=== PATIENT | male | born 1965 | race Caucasian/White ===

== ENCOUNTER 2019-02-12 13:27 | Day surgery (SDC) | payer BC ==
[2019-02-11 09:11] VITALS: BMI 29.8
[~2019-02-12 13:27] MED LIST: LACTATED RINGERS 1,000 ML IV SCH; LIDOCAINE 1% 20 ML VIAL (10MG/ML) FOR IV START INTRADERMA PRN
[2019-02-12 13:50] VITALS: RESP 16; TEMP 98
[2019-02-12] MEDS ORDERED: PROPOFOL 10 MG/ML 20 ML VIAL IV ONE (14:25)
--- NOTE | 2019-02-12 14:50 | P.OP ---
Date of Procedure: 02/12/19 Preoperative Diagnosis: screening Postoperative Diagnosis: diverticulosis of colon Descending colon polyp Rectal polyp Procedure(s) Performed: colonoscopy with hot snare polypectomy Surgeon: Abdoulaye Horta Pathology: other (polyps of descending colon and rectum) Condition: stable Disposition: same day Indications for Procedure: 53-year-old male presents for screening colonoscopy. Risks, benefits and alternatives were provided to the patient. The patient did provide consent prior to attending the endoscopy suite. Operative Findings: diverticulosis of colon Descending colon polyp Rectal polyp Description of Procedure: the patient was brought to the endoscopy suite and placed in left lateral decubitus position. Adequate sedation was achieved using conscious sedation. Digital rectal exam was performed and mild internal hemorrhage were palpated. An endoscope was then placed in the rectum and advanced to the cecum as identified by landmarks including the appendiceal orifice and the ileocecal valve. The prep was good. The colonoscope was then slowly withdrawn, examining for any mucosal abnormality. The cecum, ascending, transverse, descending and sigmoid colon were visualized adequately. 2 polyps are noted in the colon. One was noted in the descending colon and hot snare polypectomy was used to remove this polyp. Another polyp was noted in the rectum. This was removed with hot snare polypectomy. Diverticulosis was noted scattered throughout the colon. Retroflexion was performed in the rectum and mild internal hemorrhoids were visible. Excess air was removed, the colonoscope withdrawn and the procedure terminated. The patient was then transferred to the recovery unit in stable condition. Repeat contrast should be performed in 5 years.
[2019-02-12 15:27] VITALS: BP 135/70; PULSE 80
== END 2019-02-12 15:27 | disposition home or self-care (01) ==
LOC: ORWHC2ENDO 13:27
PROVIDERS: ATTEND Surgery
DX: Z12.11 Encounter for screening for malignant neoplasm of colon (principal); D12.8 Benign neoplasm of rectum; K63.5 Polyp of colon; K57.30 Diverticulosis of large intestine without perforation or abscess without bleeding; K64.8 Other hemorrhoids; I10 Essential (primary) hypertension; G47.33 Obstructive sleep apnea (adult) (pediatric); K21.9 Gastro-esophageal reflux disease without esophagitis; Z79.899 Other long term (current) drug therapy
CPT/HCPCS: 88305; 45385; J2704

== ENCOUNTER 2020-07-28 15:41 | Inpatient (IN) | payer BC ==
[2020-07-28] MEDS ORDERED: SODIUM CHLORIDE 0.9% 1,000 ML IV STA (17:02)
[2020-07-28 17:16] LABS: Basophils # (A) 0.1 k/uL (0-0.2); Basophils % (A) 1 %; Eosinophils # (A) 0.2 k/uL (0-0.7); Eosinophils % (A) 2 %; HCT 46.2 % (39.0-53.0); HGB 15.6 gm/dL (13.0-17.5); Lymphocytes # (A) 1.4 k/uL (1.0-4.8); Lymphocytes % (A) 20 %; MCH 31.5 pg (25.0-35.0); MCHC 33.7 g/dL (31.0-37.0); MCV 93.5 fL (80.0-100.0); Mean Platelet Volume 7.7; Monocytes # (A) 0.6 k/uL (0-1.0); Monocytes % (A) 9 %; Neutrophils # (A) 4.4 k/uL (1.3-7.7); Neutrophils % (A) 65 %; Platelet Count 200 k/uL (150-450); RBC 4.94 m/uL (4.30-5.90); RDW 12.5 % (11.5-15.5); WBC 6.7 k/uL (3.8-10.6)
[2020-07-28 17:28] LABS: ALT 25 U/L (4-49); AST 31 U/L (17-59); African American GFR (CKD) >90 (>60 ml/min/1.73 sqM); Albumin 4.4 g/dL (3.5-5.0); Alkaline Phosphatase 82 U/L (38-126); Anion Gap 9 mmol/L; Blood Urea Nitrogen 17 mg/dL (9-20); Calcium 9.8 mg/dL (8.4-10.2); Carbon Dioxide 23 mmol/L (22-30); Chloride 104 mmol/L (98-107); Creatine Kinase 108 U/L (55-170); Glucose 87 mg/dL (74-99); Magnesium 1.8 mg/dL (1.6-2.3); Non-African American GFR(CKD) >90 (>60 ml/min/1.73 sqM); Potassium 3.8 mmol/L (3.5-5.1); Sodium 136 mmol/L (137-145); Total Bilirubin 0.6 mg/dL (0.2-1.3); Total Protein 7.6 g/dL (6.3-8.2)
[2020-07-28] MEDS ORDERED: HEPARIN SODIUM 1,000 UN/ML (10ML VL) IV PRN (17:30)
[2020-07-28] MEDS ORDERED: HEPARIN SODIUM 1,000 UN/ML (10ML VL) IV ONE (17:30)
--- NOTE | 2020-07-28 17:30 | XR ---
EXAMINATION TYPE: XR chest 2V DATE OF EXAM: 07/28/2020 COMPARISON: Chest x-ray 07/13/2010 HISTORY: Dysrhythmia TECHNIQUE: Frontal and lateral views of the chest are obtained. FINDINGS: There is no focal air space opacity, pleural effusion, or pneumothorax seen. The cardiac silhouette size is within normal limits. There are overlying leads. The osseous structures are intac t. IMPRESSION: No acute cardiopulmonary process.
[2020-07-28 17:31] LABS: D-Dimer 0.26 mg/L FEU (<0.60); Partial Thromboplastin Time 24.9 sec (22.0-30.0); Prothrombin Time 10.4 sec (9.0-12.0)
[2020-07-28] MEDS ORDERED: DILTIAZEM DRIP BOLUS FROM BAG 1 MG SOLN IV ONE (17:31)
--- NOTE | 2020-07-28 17:36 | ED ---
Arrhythmia/Palpitations HPI - General Chief Complaint: Arrhythmia/Palpitations Stated Complaint: Abnormal EKG Time Seen by Provider: 07/28/20 16:50 Source: patient, RN notes reviewed Mode of arrival: ambulatory Limitations: no limitations - History of Present Illness Initial Comments: This is a 55-year-old male with a history of hypertension states he's been feeling well including losing 17 pounds this past spring when he was found incidentally to have A. fib RVR while at work at [employer]. Patient states he has beengetting short of breath for the past 2 weeks she is no palpitations no chest pain fevers chills nausea vomiting sweats or other symptoms. No recent weight gain no acute or cold intolerance. There is a cardiac disease family history with his father Father. He denies any other complaints this time he was sent over from the his doctor's office for evaluation MD Complaint: atrial fibrillation - Related Data Home Medications Medication Instructions Recorded Confirmed Omeprazole [PriLOSEC] 20 mg PO DAILY PRN 06/10/14 07/28/20 Losartan [Cozaar] 50 mg PO DAILY 02/11/19 07/28/20 Tamsulosin [Flomax] 0.4 mg PO DAILY 02/11/19 07/28/20 hydroCHLOROthiazide [Hydrodiuril] 12.5 mg PO DAILY 02/11/19 07/28/20 Allergies Allergy/AdvReac Type Severity Reaction Status Date / Time No Known Allergies Allergy Verified 07/28/20 17:24 Review of Systems ROS Statement: Those systems with pertinent positive or pertinent negative responses have been documented in the HPI. ROS Other: All systems not noted in ROS Statement are negative. Past Medical History Past Medical History: GERD/Reflux, Hypertension Additional Past Medical History / Comment(s): HX OF HERNIATED DISC, LEFT ELBOW RED AND SWOLLEN. ? SLEEP APNEA PT STATES PER ANESTHESIOLOGIST. History of Any Multi-Drug Resistant Organisms: None Reported Past Surgical History: Appendectomy, Orthopedic Surgery Additional Past Surgical History / Comment(s): RIGHT KNEE ARTHROSCOPY, SINUS SURGERY, RT ROTATOR CUFF (03/31/2014), LT ELBOW SX Past Anesthesia/Blood Transfusion Reactions: No Reported Reaction Past Psychological History: No Psychological Hx Reported Smoking Status: Never smoker Past Alcohol Use History: Occasional Past Drug Use History: None Reported - Past Family History Mother Family Medical History: No Reported History General Exam - General Exam Comments Initial Comments: This is a well-developed well-nourished awake alert oriented 3 male Limitations: no limitations General appearance: alert, in no apparent distress Head exam: Present: atraumatic, normocephalic, normal inspection Eye exam: Present: normal appearance, PERRL, EOMI. Absent: scleral icterus, conjunctival injection, periorbital swelling ENT exam: Present: normal exam, mucous membranes moist Neck exam: Present: normal inspection, full ROM, other (No stridor JVD or bruits). Absent: tenderness, meningismus, lymphadenopathy, thyromegaly Respiratory exam: Present: normal lung sounds bilaterally. Absent: respiratory distress, wheezes, rales, rhonchi, stridor Cardiovascular Exam: Present: tachycardia, irregular rhythm. Absent: systolic murmur, diastolic murmur, rubs, gallop, clicks GI/Abdominal exam: Present: soft, normal bowel sounds. Absent: distended, tenderness, guarding, rebound, rigid Extremities exam: Present: normal inspection, full ROM, normal capillary refill. Absent: tenderness, pedal edema, joint swelling, calf tenderness Back exam: Present: normal inspection Neurological exam: Present: alert, oriented X3, CN II-XII intact Psychiatric exam: Present: normal affect, normal mood Skin exam: Present: warm, dry, intact, normal color. Absent: rash Course Vital Signs 07/28/20 07/28/20 07/28/20 16:05 16:18 18:25 Temperature 97.9 F Pulse Rate 70 138 H 91 Respiratory 18 20 16 Rate Blood Pressure 159/89 140/122 144/90 O2 Sat by Pulse 98 98 97 Oximetry - Reevaluation(s) Reevaluation #1: 07/28/20 19:20 Reevaluation patient had no other symptoms at this time his heart rate is responding to the IV Cardizem. EKG Findings - EKG Results: EKG: interpreted by GIBSON (Atrial fibrillation rate 123 QRS 90 QT since QTC 336/41 rapid ventricular response noted nonspecific ST-T wave configuration) Medical Decision Making - Medical Decision Making I did discuss the findings with the patient as well as with Dr. Escobedo, patient will be admitted with cardiology consultation his heart rate is responding Blake atrial fibrillation though his response rate is plus or minus en route at this time. - Lab Data Result diagrams: 07/28/20 16:18 07/28/20 16:18 Lab Results 07/28/20 07/28/20 07/28/20 Range/Units 16:18 16:18 16:18 WBC 6.7 (3.8-10.6) k/uL RBC 4.94 (4.30-5.90) m/uL Hgb 15.6 (13.0-17.5) gm/dL Hct 46.2 (39.0-53.0) % MCV 93.5 (80.0-100.0) fL MCH 31.5 (25.0-35.0) pg MCHC 33.7 (31.0-37.0) g/dL RDW 12.5 (11.5-15.5) % Plt Count 200 (150-450) k/uL MPV 7.7 Neutrophils % 65 % Lymphocytes % 20 % Monocytes % 9 % Eosinophils % 2 % Basophils % 1 % Neutrophils # 4.4 (1.3-7.7) k/uL Lymphocytes # 1.4 (1.0-4.8) k/uL Monocytes # 0.6 (0-1.0) k/uL Eosinophils # 0.2 (0-0.7) k/uL Basophils # 0.1 (0-0.2) k/uL PT 10.4 (9.0-12.0) sec INR 1.0 (<1.2) APTT 24.9 (22.0-30.0) sec D-Dimer 0.26 (<0.60) mg/L FEU Sodium 136 L (137-145) mmol/L Potassium 3.8 (3.5-5.1) mmol/L Chloride 104 (98-107) mmol/L Carbon Dioxide 23 (22-30) mmol/L Anion Gap 9 mmol/L BUN 17 (9-20) mg/dL Creatinine 0.88 (0.66-1.25) mg/dL Est GFR (CKD-EPI)AfAm >90 (>60 ml/min/1.73 sqM) Est GFR (CKD-EPI)NonAf >90 (>60 ml/min/1.73 sqM) Glucose 87 (74-99) mg/dL Calcium 9.8 (8.4-10.2) mg/dL Magnesium 1.8 (1.6-2.3) mg/dL Total Bilirubin 0.6 (0.2-1.3) mg/dL AST 31 (17-59) U/L ALT 25 (4-49) U/L Alkaline Phosphatase 82 (38-126) U/L Creatine Kinase 108 (55-170) U/L Troponin I (0.000-0.034) ng/mL Total Protein 7.6 (6.3-8.2) g/dL Albumin 4.4 (3.5-5.0) g/dL TSH 3.400 (0.465-4.680) mIU/L 07/28/20 Range/Units 16:18 WBC (3.8-10.6) k/uL RBC (4.30-5.90) m/uL Hgb (13.0-17.5) gm/dL Hct (39.0-53.0) % MCV (80.0-100.0) fL MCH (25.0-35.0) pg MCHC (31.0-37.0) g/dL RDW (11.5-15.5) % Plt Count (150-450) k/uL MPV Neutrophils % % Lymphocytes % % Monocytes % % Eosinophils % % Basophils % % Neutrophils # (1.3-7.7) k/uL Lymphocytes # (1.0-4.8) k/uL Monocytes # (0-1.0) k/uL Eosinophils # (0-0.7) k/uL Basophils # (0-0.2) k/uL PT (9.0-12.0) sec INR (<1.2) APTT (22.0-30.0) sec D-Dimer (<0.60) mg/L FEU Sodium (137-145) mmol/L Potassium (3.5-5.1) mmol/L Chloride (98-107) mmol/L Carbon Dioxide (22-30) mmol/L Anion Gap mmol/L BUN (9-20) mg/dL Creatinine (0.66-1.25) mg/dL Est GFR (CKD-EPI)AfAm (>60 ml/min/1.73 sqM) Est GFR (CKD-EPI)NonAf (>60 ml/min/1.73 sqM) Glucose (74-99) mg/dL Calcium (8.4-10.2) mg/dL Magnesium (1.6-2.3) mg/dL Total Bilirubin (0.2-1.3) mg/dL AST (17-59) U/L ALT (4-49) U/L Alkaline Phosphatase (38-126) U/L Creatine Kinase (55-170) U/L Troponin I <0.012 (0.000-0.034) ng/mL Total Protein (6.3-8.2) g/dL Albumin (3.5-5.0) g/dL TSH (0.465-4.680) mIU/L - Radiology Data Radiology results: report reviewed (Imaging reviewed no acute findings.), image reviewed Critical Care Time Critical Care Time: Yes Total Critical Care Time: 35 Critical Care Time: Critical care time includes initial presentation with history physical labs x- rays also reevaluation patient responsive therapy discuss with the patient regarding findings discussion with the admitting physician admission orders and documentation of the above Disposition Clinical Impression: Rapid atrial fibrillation, Hypertension Disposition: ADMITTED IP TO THIS [facility] Condition: Fair Referrals: Manjeet Bray MD [Primary Care Provider] - 1-2 days
[2020-07-28] MEDS: HEPARIN SOD,PORK IN 0.45% NACL 25,000 UNIT in 0.45% NACL 1 250ML.BAG IV SCH ×2 (17:44→19:24)
[2020-07-28] MEDS ORDERED: DILTIAZEM 125 MG in SODIUM CHLORIDE 0.9% 100 ML IV SCH (18:00)
[2020-07-28] MEDS ORDERED: NALOXONE 0.4 MG/ML 1 ML VIAL IV PRN (19:24)
[2020-07-28] MEDS ORDERED: ACETAMINOPHEN TAB 325 MG TAB PO PRN (19:24)
[2020-07-28] MEDS ORDERED: PANTOPRAZOLE 40 MG TABLET PO PRN (19:27)
[2020-07-28] MEDS ORDERED: SODIUM CHLORIDE 0.9% 1,000 ML IV SCH (19:30)
[2020-07-28] MEDS ORDERED: ALPRAZolam 0.5 MG TAB PO PRN (22:36)
[2020-07-28 23:58] VITALS: RESP 18
--- NOTE | 2020-07-29 00:16 | P.HPIM ---
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 He claims that he is in good health otherwise he gets his annual checkups and everything has been under control and doing well. He takes blood pressure medications . He's been trying to on his health and lose some weight with increased exercising he denies taking any supplements or any herbs. He's been successful to lose 17 pounds intentionally. He's been feeling fine except for the past 2 weeks where he noticed some unusual easy fatigability with routines that she's used to do in the past like mowing grass and some mild/moderate activity he didn't think much of it he thought it's due to the heat and change in weather. Otherwise he denies any chest pain denies any fevers or chills denies any dizziness lightheadedness nausea vomiting abdominal pain or any bleeding In the ED was found to be in A. fib with RVR patient was started on Cardizem drip and admitted for further care and evaluation Patient denies any recent travel or sick contacts. He has positive family history of heart disease his grandpa of massive heart attack at age of 60 and his father has history of brain aneurysm Review of Systems Pertinent positives as noted in HPI. All other systems were reviewed and are negative Past Medical History Past Medical History: GERD/Reflux, Hypertension Additional Past Medical History / Comment(s): HX OF HERNIATED DISC, LEFT ELBOW RED AND SWOLLEN. ? SLEEP APNEA PT STATES PER ANESTHESIOLOGIST. History of Any Multi-Drug Resistant Organisms: None Reported Past Surgical History: Appendectomy, Orthopedic Surgery Additional Past Surgical History / Comment(s): RIGHT KNEE ARTHROSCOPY, SINUS SURGERY, RT ROTATOR CUFF (03/31/2014), LT ELBOW SX Past Anesthesia/Blood Transfusion Reactions: No Reported Reaction Past Psychological History: No Psychological Hx Reported Smoking Status: Never smoker Past Alcohol Use History: Occasional Past Drug Use History: None Reported - Past Family History Mother Family Medical History: No Reported History Additional Family Medical History / Comment(s): Father with history of brain aneurysm, grandpa with massive heart attack at age of 60 Medications and Allergies Home Medications Medication Instructions Recorded Confirmed Type Omeprazole [PriLOSEC] 20 mg PO DAILY PRN 06/10/14 07/28/20 History Losartan [Cozaar] 50 mg PO DAILY 02/11/19 07/28/20 History Tamsulosin [Flomax] 0.4 mg PO DAILY 02/11/19 07/28/20 History hydroCHLOROthiazide [Hydrodiuril] 12.5 mg PO DAILY 02/11/19 07/28/20 History Allergies Allergy/AdvReac Type Severity Reaction Status Date / Time No Known Allergies Allergy Verified 07/28/20 17:24 Physical Exam Vitals: Vital Signs Temp Pulse Resp BP Pulse Ox 07/28/20 18:25 91 16 144/90 97 07/28/20 16:18 138 H 20 140/122 98 07/28/20 16:05 97.9 F 70 18 159/89 98 Intake and Output 07/28/20 07/28/20 07/28/20 06:59 14:59 22:59 Intake Total 16.667 Balance 16.667 Intake: Intake, IV Titration 16.667 Amount Heparin Sod,Pork in 0.45% 16.667 NaCl 25,000 unit In 0.45 % NaCl 1 250ml.bag @ 9. 886 UNITS/KG/HR 10 mls/hr IV .Q24H [facility] Rx#: [id number] Other: Weight 101.151 kg Constitutional: No acute distress, conversant, pleasant Eyes: Anicteric sclerae, moist conjunctiva, Pupils equal round reactive to light ENMT: NC/AT Oropharynx clear, no erythema, or exudates Neck: Supple, FROM, no masses, or JVD No carotid bruits No thyromegaly Lungs: Clear to auscultation Clear to percussion Normal respiratory effort, no accessory muscle use Cardiovascular: Heart irregular No murmurs, gallops, or rubs No peripheral edema Abdominal: Soft Nontender, no guarding, rebound or rigidity Abdomen moving with respiration Normoactive bowel sounds No hepatomegaly, No splenomegaly No palpable mass No abdominal wall hernia noted Skin: Normal temperature, tone, texture, turgor No induration No subcutaneous nodules No rash, lesions No ulcers Extremities: No digital cyanosis No clubbing Pedal pulses intact and symmetrical Radial pulses intact and symmetrical No calf tenderness Psychiatric: Alert and oriented to person, place and time Appropriate affect fair judgement Neuro Muscles Strength 5/5 in all 4 extremities Sensation to light touch grossly present throughout Cranial nerves II-XII grossly intact No focal sensory deficits Lymphatics: no palpable cervical or supraclavicular , or inguinal lymph nodes Results CBC & Chem 7: 07/28/20 16:18 07/28/20 16:18 Labs: Abnormal Lab Results - Last 24 Hours (Table) 07/28/20 Range/Units 16:18 Sodium 136 L (137-145) mmol/L Assessment and Plan Assessment: A. fib with RVR Heparin drip Cardizem drip Cardiology evaluation Echocardiogram TSH unremarkable Monitor vital signs Monitor electrolytes Chest x-ray no pleural effusion no acute pathology Hypertension, overall controlled currently slightly elevated Resume home medications, losartan CODE STATUS: Full code DVT prophylaxis: On heparin drip Discussed with: Patient, ER, RN Anticipated length of stay more than [address]: Home A total of 65 minutes was spent on the care of this complex patient more than 50% of the time was spent in counseling and care coordination.
[2020-07-29] MEDS ORDERED: DILTIAZEM ORAL 60 MG TAB PO SCH (09:00)
[2020-07-29] MEDS ORDERED: TAMSULOSIN 0.4 MG CAP.ER.24H PO SCH (09:00)
[2020-07-29] MEDS ORDERED: LOSARTAN 50 MG TAB PO SCH (09:00)
[2020-07-29] MEDS ORDERED: hydroCHLOROthiazide 12.5 MG CAP PO SCH (09:00)
[2020-07-29] MEDS ORDERED: APIXABAN 5 MG TAB PO SCH (09:00)
[2020-07-29 09:18] LABS: Prothrombin Time 10.5 sec (9.0-12.0)
[2020-07-29 09:28] LABS: Basophils # (A) 0.1 k/uL (0-0.2); Basophils % (A) 1 %; Eosinophils # (A) 0.1 k/uL (0-0.7); Eosinophils % (A) 2 %; HCT 46.5 % (39.0-53.0); HGB 15.9 gm/dL (13.0-17.5); Lymphocytes # (A) 1.1 k/uL (1.0-4.8); Lymphocytes % (A) 24 %; MCH 32.4 pg (25.0-35.0); MCHC 34.2 g/dL (31.0-37.0); MCV 94.8 fL (80.0-100.0); Mean Platelet Volume 8.6; Monocytes # (A) 0.5 k/uL (0-1.0); Monocytes % (A) 12 %; Neutrophils # (A) 2.6 k/uL (1.3-7.7); Neutrophils % (A) 58 %; Platelet Count 189 k/uL (150-450); RBC 4.91 m/uL (4.30-5.90); RDW 12.5 % (11.5-15.5); WBC 4.5 k/uL (3.8-10.6)
--- NOTE | 2020-07-29 09:37 | CONS ---
CONSULTATION Mr. Bryant is a 55-year-old male with a known history of hypertension and no other cardiac disease who works in the operating room at [employer] and yesterday while working he checked his smart watch and noted his heart rate to be fast. He had a rhythm strip that documented atrial fibrillation. He finished his day and subsequently after consultation with primary care physician, he was referred to the emergency room and admitted with atrial fibrillation. The patient does not feel the palpitations. He is unaware of the atrial fibrillation. He has not been checking his heart rate on a regular basis yet he felt tired over the last 2 weeks. He is average in his exercise tolerance, has no exertional chest discomfort. No significant changes in his breathing. No dizziness. No palpitation. No syncope. No PND, orthopnea, or peripheral edema. His coronary risk factors are positive for hypertension. Negative for diabetes or smoking. His lipid profile is not available. FAMILY HISTORY: He has a family history of premature coronary artery disease in his grandfather. His father has a history of atrial fibrillation. SOCIAL HISTORY: He drinks alcohol about twice a week and drinks a significant amount of caffeine. MEDICATION: His medications at home included HydroDIURIL 12.5 mg daily, Flomax 0.4 mg daily and losartan 50 mg daily. REVIEW OF SYSTEMS: RESPIRATORY SYSTEM: He denies any recent wheezing or cough. No history of documented obstructive lung disease. GI SYSTEM: No recent GI bleeding. No peptic ulcer disease. SYSTEM: No dysuria or hematuria. NERVOUS SYSTEM: No history of stroke or seizure. PHYSICAL EXAMINATION: He is a 55-year-old male, alert, oriented, in no apparent distress. Blood pressure 117/80 with a heart rate in 90s. HEAD: Normocephalic, Eyes sclerae anicteric. NECK: Good carotid upstroke. No bruit. No jugular venous distention. LUNGS: Clear to auscultation. HEART: Irregularly irregular S1, S2. No S3. No rub. ABDOMEN: Soft and nontender. Positive bowel sounds. No organomegaly. EXTREMITIES: No edema. Intact pulses. LAB DATA: Lab data revealed troponin less than 0.012. BUN and creatinine of 17 and 0.88, potassium 3.8, hemoglobin 15.6. TSH of 3.4. EKG revealed atrial fibrillation with rapid ventricular response, rate of [address]-T wave changes. Chest x-ray shows no acute infiltrate. IMPRESSION: 1. Atrial fibrillation of unknown duration, could be 2 weeks. His CHADS2 VASc score is 1 in view of his hypertension. 2. History of hypertension. RECOMMENDATION: From the cardiac standpoint I will stop his IV heparin and his IV Cardizem. I will initiate treatment with oral Cardizem and Eliquis. We will obtain echocardiogram with Doppler. If his rate is controlled with ambulation, he may be able to be discharged home and followed as an outpatient on anticoagulation and if he remains in atrial fibrillation that I would recommend to proceed with KOLTON guided cardioversion. I have discussed those findings and recommendations with the patient. He has full understanding and agreement. At the same time, I have encouraged him to cut down his caffeine intake as well as his alcohol intake. Thank you for this consult. We will follow with you. MEG / LORENZA: [id number] /
[2020-07-29 09:45] VITALS: TEMP 97.7
--- NOTE | 2020-07-29 11:36 | ECHOF ---
Referral Reason:Atrial fibrillation MEASUREMENTS -------- HEIGHT: 180.3 cm WEIGHT: 101.2 kg BP: 117/85 RVIDd: 3.2 cm (< 3.3) IVSd: 1.1 cm (0.6 - 1.1) LVIDd: 4.5 cm (3.9 - 5.3) LVPWd: 1.0 cm (0.6 - 1.1) IVSs: 1.8 cm LVIDs: 3.3 cm LVPWs: 1.7 cm LAESV Index (A-L): 36.25 ml/m Ao Diam: 3.5 cm (2.0 - 3.7) AV Cusp: 1.9 cm (1.5 - 2.6) LA Diam: 3.9 cm (2.7 - 3.8) MV EXCURSION: 18.048 mm (> 18.000) MV EF SLOPE: 121 mm/s (70 - 150) EPSS: 1.5 cm AR PHT: 413 ms RAP: 5.00 mmHg RVSP: 18.36 mmHg FINDINGS -------- Atrial fibrillation. This was a technically good study. The left ventricular size is normal. Left ventricular wall thickness is normal. Overall left vent ricular systolic function is low-normal with, an EF between 50 - 55 %. Left ventricular fillimg pre ssure cannot be estimated due to Atrial fibrillation. The right ventricle is normal in size. LA is moderately dilated 34-39 ml/m2 The right atrial size is normal. The aortic valve is trileaflet and appears structurally normal. Trace amount of aortic regurgitatio n. The mitral valve is normal. [id number] mitral regurgitation is present. The tricuspid valve appears structurally normal. Mild tricuspid regurgitation present. Right vent ricular systolic pressure is normal at < 35 mmHg. There is no pulmonic regurgitation present. The aortic root size is normal. Normal inferior vena cava with normal inspiratory collapse consistent with estimated right atrial pre ssure of 5 mmHg. There is no pericardial effusion. CONCLUSIONS -------- 1. The left ventricular size is normal. 2. Left ventricular wall thickness is normal. Inferior wall is hypokinetic 3. Overall left ventricular systolic function is low-normal with, an EF between 50 - 55 %. 4. Left ventricular fillimg pressure cannot be estimated due to Atrial fibrillation. 5. LA is moderately dilated 34-39 ml/m2 6. Trace amount of aortic regurgitation. 7. [id number] mitral regurgitation is present. 8. Mild tricuspid regurgitation present. 9. There is no pericardial effusion. SLEEVE SEWER: Regina Ibarra RDCS
--- NOTE | 2020-07-29 14:16 | P.DS ---
Providers Date of admission: 07/28/20 19:25 Expected date of discharge: 07/29/20 Attending physician: Tiana Meek DO Consults: 07/28/20 19:25 Consult Physician Routine Consulting Provider: Gucci Haro Consult Reason/Comments: Rapid atrial fibrillation, exertional dyspnea Do you want consulting provider notified?: Yes Primary care physician: [facility] Course: Discharge Diagnosis: Newly discovered atrial fibrillation with rapid ventricular response Hypertension GERD Hospital Course: Patient is a 55-year-old female with a history of GERD, hypertension, and possible sleep apnea who presented to the emergency department secondary to elevated heart rate of 160-170. He reports that he has been having easy fatigability and at work ejected follow found it was elevated. In the ER he was diagnosed with atrial fibrillation with rapid ventricular response. He was started on a heparin drip and Cardizem drip. He was admitted for further monitoring. He continued to be in A. fib but was rate controlled and as transitioned off the Cardizem drip and onto oral Cardizem. Echocardiogram showed an ejection fraction of 55-60% with moderate to severe mitral regurgitation. He was seen by cardiology. He was determined stable for discharge home. We'll follow up with cardiology in 2 weeks for possible cardioversion should he did not convert on his own. He will be discharged on Eliquis and diltiazem Patient seen and examined at bedside. Feeling much better, until that his heart rate is slower but he never realized it was fast, denies any shortness breath. Feeling well in agreement to go home. Vital signs reviewed and stable. General: non toxic, no distress, appears at stated age Derm: warm, dry Head: atraumatic, normocephalic, symmetric Eyes: EOMI, no lid lag, anicteric sclera Mouth: no lip lesion, mucus membranes moist Cardiovascular: S1-S2 regular, no murmur, positive posterior tibial pulse bilateral, Lungs: CTA bilateral, no rhonchi, no rales , no accessory muscle use Abdominal: soft, nontender to palpation, no guarding, no appreciable organomegaly Ext: no gross muscle atrophy, no edema, no contractures Neuro: CN II-XI grossly intact, no focal neuro deficits Psych: Alert, oriented, appropriate affect A total of 35 minutes of time were spent preparing this complex discharge summary . Patient Condition at Discharge: Fair Plan - Discharge Summary New Discharge Prescriptions: New Diltiazem Oral [Cardizem*] 60 mg PO TID #90 tab Apixaban [Eliquis] 5 mg PO BID #60 tab Continue Omeprazole [PriLOSEC] 20 mg PO DAILY PRN PRN Reason: Heartburn Tamsulosin [Flomax] 0.4 mg PO DAILY Losartan [Cozaar] 50 mg PO DAILY hydroCHLOROthiazide [Hydrodiuril] 12.5 mg PO DAILY Discharge Medication List Omeprazole [PriLOSEC] 20 mg PO DAILY PRN 06/10/14 [History] Losartan [Cozaar] 50 mg PO DAILY 02/11/19 [History] Tamsulosin [Flomax] 0.4 mg PO DAILY 02/11/19 [History] hydroCHLOROthiazide [Hydrodiuril] 12.5 mg PO DAILY 02/11/19 [History] Apixaban [Eliquis] 5 mg PO BID #60 tab 07/29/20 [Rx] Diltiazem Oral [Cardizem*] 60 mg PO TID #90 tab 07/29/20 [Rx] Follow up Appointment(s)/Referral(s): Manjeet Bray MD [Primary Care Provider] - 1-2 days Oscar Hart MD [STAFF PHYSICIAN] - 1 Week Activity/Diet/Wound Care/Special Instructions: Activity: as tolerated Diet: heart healthy Special Instructions: monitor Discharge Disposition: HOME SELF-CARE
[2020-07-29 14:56] VITALS: BP 129/86; PULSE 76
== END 2020-07-29 15:35 | disposition home or self-care (01) | DRG 310 ==
LOC: EC 15:41 → 3SCARD 19:25
PROVIDERS: ADMIT Internal Medicine; ATTEND Internal Medicine
DX: I48.91 Unspecified atrial fibrillation (principal); I10 Essential (primary) hypertension; K21.9 Gastro-esophageal reflux disease without esophagitis; Z20.822 Contact with and (suspected) exposure to COVID-19; I34.0 Nonrheumatic mitral (valve) insufficiency; Z79.899 Other long term (current) drug therapy; Z82.49 Family history of ischemic heart disease and other diseases of the circulatory system; Z90.49 Acquired absence of other specified parts of digestive tract; G47.30 Sleep apnea, unspecified
CPT/HCPCS: 36415; 71046; 80053; 82550; 83735; 84443; 84484; 85025; 85379; 85610; 85730; 87635; 93005; 93306; 96374; 96375; 99291

== ENCOUNTER 2020-08-17 06:11 | Day surgery (SDC) | payer BC ==
[2020-08-15 15:45] VITALS: BMI 29.0
[~2020-08-17 06:11] MED LIST changes: -LIDOCAINE 1% 20 ML VIAL (10MG/ML) FOR IV START INTRADERMA PRN; +SODIUM CHLORIDE 0.9% 1,000 ML IV SCH
[2020-08-17] MEDS ORDERED: fentaNYL (PF) 50 MCG/ML 2 ML AMP ONE (07:13)
[2020-08-17] MEDS ORDERED: LIDOCAINE 1% INJ 10MG/ML (20 ML MDV) ONE (07:13)
[2020-08-17] MEDS ORDERED: PROPOFOL 10 MG/ML 20 ML VIAL IV ONE (07:13)
[2020-08-17] MEDS ORDERED: MIDAZOLAM 2 MG/2 ML VIAL ONE (07:13)
[2020-08-17 07:45] VITALS: TEMP 98
[2020-08-17 07:48] VITALS: RESP 16
[2020-08-17] MEDS ORDERED: PANTOPRAZOLE 40 MG TABLET PO PRN (07:49)
[2020-08-17] MEDS ORDERED: SODIUM CHLORIDE 0.9% 1,000 ML IV SCH (08:00)
[2020-08-17 08:43] VITALS: BP 128/68; PULSE 83
--- NOTE | 2020-08-17 10:08 | PCN ---
PROCEDURE NOTE PROCEDURE: Cardioversion. INDICATIONS: Atrial fibrillation. PROCEDURE DESCRIPTION: After explaining the procedure to the patient as well as its risks and complications, his blood pressure, heart rate, O2 saturation were monitored. After obtaining transesophageal echocardiogram and obtaining sedated state, a synchronized biphasic cardioversion using 200 joules was unsuccessful in restoring sinus mechanism. Subsequently, 205 joules synchronized cardioversion was successful in restoring normal sinus rhythm. There was no immediate complication. MMODL / IJN: [id number] /
--- NOTE | 2020-08-17 12:58 | ECHOT ---
TRANSESOPHAGEAL ECHOCARDIOGRAM TRANSESOPHAGEAL ECHOCARDIOGRAM: INDICATION: Evaluation of left atrial appendage. PROCEDURE DETAILS: After explaining the procedure to the patient, its risks and the complications, his blood pressure, heart rate, O2 saturation were monitored. The throat was sprayed with Cetacaine. He received sedation per Anesthesia Department. The probe was introduced into the esophagus without difficulty. Images were obtained. Following that, the probe was removed. There was no immediate complication. FINDINGS: Left atrial size is dilated. Left atrial appendage is normal. Left ventricular size is normal. There is evidence of global hypokinesis, estimated ejection fraction 40 to 45%. The aortic valve, mitral valve and tricuspid valve are normal. Descending thoracic aorta appears to be normal. Contrast bubble study revealed no evidence of shunting across the interatrial septum. No pericardial effusion was noted. Doppler pulse wave and color Doppler obtained and revealed a moderate mitral and aortic regurgitation with mild tricuspid regurgitation. There was no shunting by color Doppler study. CONCLUSION: 1. Dilated left atrium with normal appearance of left atrial appendage. 2. Normal left ventricular size with mildly to moderately impaired left ventricular systolic function. 3. Moderate mitral and aortic regurgitation. 4. No shunting across the interatrial septum. 5. Normal appearance of the descending thoracic aorta. MMODL / IJN: [id number] /
[2020-08-17] MEDS ORDERED: DILTIAZEM ORAL 60 MG TAB PO SCH (16:00)
[2020-08-17] MEDS ORDERED: APIXABAN 5 MG TAB PO SCH (21:00)
[2020-08-18] MEDS ORDERED: LOSARTAN 50 MG TAB PO SCH (09:00)
[2020-08-18] MEDS ORDERED: TAMSULOSIN 0.4 MG CAP.ER.24H PO SCH (09:00)
[2020-08-18] MEDS ORDERED: hydroCHLOROthiazide 12.5 MG CAP PO SCH (09:00)
== END 2020-08-17 09:19 | disposition home or self-care (01) ==
LOC: CATHCVL 06:11
PROVIDERS: ATTEND Internal Medicine Interventional Cardiology
DX: I48.19 Other persistent atrial fibrillation (principal); I08.0 Rheumatic disorders of both mitral and aortic valves; I10 Essential (primary) hypertension; G47.33 Obstructive sleep apnea (adult) (pediatric); K21.9 Gastro-esophageal reflux disease without esophagitis; Z98.890 Other specified postprocedural states; Z20.822 Contact with and (suspected) exposure to COVID-19; Z90.89 Acquired absence of other organs; Z82.49 Family history of ischemic heart disease and other diseases of the circulatory system; Z87.891 Personal history of nicotine dependence; Z79.01 Long term (current) use of anticoagulants; Z79.899 Other long term (current) drug therapy
CPT/HCPCS: 93312; 93320; 93325; 92960; 87635; J2250; J2001; J3010; J2704

== ENCOUNTER → 2020-10-04 | Outpatient (CLI) | payer BC ==
[2020-10-04 12:26] LABS: HCT 45.8 % (39.0-53.0); HGB 15.7 gm/dL (13.0-17.5); MCH 32.9 pg (25.0-35.0); MCHC 34.3 g/dL (31.0-37.0); MCV 95.8 fL (80.0-100.0); Platelet Count 233 k/uL (150-450); RBC 4.79 m/uL (4.30-5.90); RDW 13.5 % (11.5-15.5); WBC 4.8 k/uL (3.8-10.6)
[2020-10-04 13:01] LABS: African American GFR (CKD) >90 (>60 ml/min/1.73 sqM); Anion Gap 9 mmol/L; Blood Urea Nitrogen 17 mg/dL (9-20); Carbon Dioxide 23 mmol/L (22-30); Chloride 105 mmol/L (98-107); Non-African American GFR(CKD) >90 (>60 ml/min/1.73 sqM); Potassium 4.2 mmol/L (3.5-5.1); Sodium 137 mmol/L (137-145)
== END | disposition home or self-care (01) ==
LOC: LABPAT 11:30
PROVIDERS: ATTEND Internal Medicine Clinical Cardiac Electrophysiology
DX: Z01.812 Encounter for preprocedural laboratory examination (principal); I48.19 Other persistent atrial fibrillation
CPT/HCPCS: 80051; 82565; 84520; 85027

== ENCOUNTER 2020-10-10 09:42 | Day surgery (SDC) | payer BC ==
[2020-10-06 18:02] VITALS: BMI 29.0
[~2020-10-10 09:42] MED LIST changes: +DEXAMETHASONE SOD PHOSPHATE 4 MG/ML 1 ML VIAL IV ONE; -LACTATED RINGERS 1,000 ML IV SCH; +LIDOCAINE 1% (10MG/ML) FOR IV START INTRADERMA PRN; +ONDANSETRON 4 MG/2 ML VIAL IVP ONE; -SODIUM CHLORIDE 0.9% 1,000 ML IV SCH
[2020-10-10] MEDS: SODIUM CHLORIDE 0.9% 1,000 ML IV SCH (10:08)
[2020-10-10] MEDS ORDERED: LIDOCAINE 1% INJ 10MG/ML (20 ML MDV) ONE ×2 (11:07→11:13)
[2020-10-10] MEDS ORDERED: fentaNYL (PF) 50 MCG/ML 2 ML AMP ONE (11:13)
[2020-10-10] MEDS ORDERED: ePHEDrine SULFATE/0.9% NACL/PF 50 MG/5 ML SYRINGE IV ONE (11:13)
[2020-10-10] MEDS ORDERED: SUCCINYLCHOLINE CHLORIDE 100 MG/5 ML SYR IV ONE (11:13)
[2020-10-10] MEDS ORDERED: PROTAMINE SULFATE 10 MG/ML 5 ML VIAL IV ONE (11:13)
[2020-10-10] MEDS ORDERED: PROPOFOL 10 MG/ML 20 ML VIAL IV ONE (11:13)
[2020-10-10] MEDS ORDERED: HEPARIN SODIUM,PORCINE 10,000 UNIT/ML 1 ML VIAL ONE (11:13)
[2020-10-10] MEDS ORDERED: PHENYLEPHRINE-0.9% NACL SYG 1,000 MCG/10 ML SYRINGE ONE (11:13)
[2020-10-10] MEDS ORDERED: MIDAZOLAM 2 MG/2 ML VIAL ONE (11:13)
[2020-10-10] MEDS ORDERED: LIDOCAINE 1% INJ 10MG/ML (20 ML MDV) SQ ONE (11:53)
[2020-10-10] MEDS ORDERED: HEPARIN SOD,PORK IN 0.45% NACL 25,000 UNIT in 0.45% NACL 1 250ML.BAG IV ONE (12:05)
[2020-10-10] MEDS ORDERED: IOPAMIDOL-370 100ML BTL INJ ONE (13:05)
[2020-10-10] MEDS ORDERED: ACETAMINOPHEN IV (For NPO) 1,000 MG in EMPTY BAG 1 BAG IVPB ONE (13:58)
[2020-10-10] MEDS ORDERED: ACETAMINOPHEN TAB 325 MG TAB PO PRN (13:58)
[2020-10-10] MEDS ORDERED: PANTOPRAZOLE 40 MG TABLET PO PRN (13:59)
--- NOTE | 2020-10-10 14:47 | P.EPPROC ---
- EP Procedure Note Electrophysiology Procedure Note: PROCEDURE A. fib ablation DIAGNOSIS Atrial fibrillation, symptomatic, refractory to therapy Persistent, RESULT No left atrial appendage mass seen on intracardiac echo, smoking the left atrium Successful pulmonary vein isolation of all veins using cryo-ablation Complete entrance block in all 4 veins confirmed No evidence for phrenic nerve injury Successful ablation of the left atrial roof/upper posterior wall of the LA/linear ablation Esophageal deflection YES Electrical cardioversion with a synchronized shock across the chest YES PROCEDURE DETAILS Patient was brought to the EP lab in a fasting state. Written informed consent was obtained prior to the procedure. Procedure performed under general anesthesia After initial muscle relaxant use, muscle relaxants were not given thereafter in order to assess phrenic nerve during procedure. Patient prepped and draped as per protocol Full cryo-set up with standard preparation of the cryoablation tools done. Femoral Venous access obtained on the right and left groins Venous and arterial Sheaths placed. Diagnostic catheters for the high right atrium, phrenic nerve stimulation and pacing, His bundle, RV and coronary sinus placed Intracardiac echo catheter placed. Long sheath placed in the right atrium Left and right transseptal catheterization performed under intracardiac echo guidance. Intravenous heparin with aCT above 300 Later, catheter positioning and balloon positioning in the left atrium, under intracardiac echo guidance Diagnostic EP study with Coronary sinus pacing and recording Baseline measurements Sinus cycle length 732 ms, WA interval 170 ms, QRS 95 ms and QT 371 ms AH 91 ms and HV 37 ms Atrial pacing performed from the high right atrium and the coronary sinus RV pacing VA Wenckebach block 360 ms AV node Wenckebach block 310 ms Sinus node recovery times at 600, 540 ms were 864, 901 and 1931 ms Transseptal catheterization performed RA pressure 17/14/15 LA pressure 22/13/70 Transseptal catheterization performed with standard sheath. The cryoablation sheath was then placed with an over the wire exchange without any acute complications. All 4 pulmonary veins were isolated in the following sequence: Left superior followed by left inferior followed by right superior followed by right inferior The cryo-ablation balloon was placed at the os of each vein 1.5 mL of IV dye was injected to confirm an occluded vein Goal during cryoablation was to achieve complete occlusion of the pulmonary vein, achieve -30 degrees C at 30 seconds and achieve -40 degrees C at 60 seconds and a time to effect of less than 60-90 seconds, . If not the balloon was repositioned to obtain this result After completion of Cryoblation with durations from 180-240 seconds, entrance block was confirmed with the Attain circular catheter in a roving fashion around the antrum of the pulmonary veins Phrenic nerve pacing was performed from the SVC, right innominate vein area and diaphragm voltage was monitored. Diaphragmatic contractions were also monitored manually for strength of contraction. Parameter goals for each cryo freeze Complete occlusion of the appropriate vein -30 degrees C by 30 seconds -40 degrees C by 60 seconds Minimum between minus 40-55 degrees C Thaw time greater than 10 seconds Balloon visualized by intracardiac echo The esophagus was intubated. Esophageal Temperature monitoring with a CIRCA catheter formed. Esophageal deflection for hypothermia of the esophagus below 30 degrees C Left superior pulmonary vein Complete isolation, entrance block Left inferior pulmonary vein Complete isolation, entrance block Right superior pulmonary vein, during phrenic nerve pacing Complete isolation, entrance block Right inferior pulmonary vein, during phrenic nerve pacing Complete isolation, entrance block At the end of the procedure the Achieve catheter was once again used to check for entrance block Phrenic nerve stimulation was performed to confirm diaphragmatic stimulation the end of the procedure Cine fluoroscopy was performed at the very end of the procedure to confirm movement of both diaphragms with inspiration and expiration At the end of the procedure the patient was extubated Heparin was reversed Venous sheaths were removed and hemostasis assured PROCEDURES PERFORMED Diagnostic EP study CS pacing and recording Left and right transseptal catheterization Catheter the mapping of the tachycardia (NOT 3D mapping) Intracardiac echocardiography Pulmonary vein isolation with transseptal and comprehensive EPS, [id number] Left atrial roof line/upper left atrial posterior wall ablation, +[id number] Electrical cardioversion with a synchronized shock across the chest [id number]
--- NOTE | 2020-10-10 14:57 | P.PRLE ---
RE: MannyPb Dear Lee Bryant underwent an A. fib ablation today. He's had persistent atrial fibrillation with nonischemic cardiomyopathy and has had failed electrical cardioversion was attempted by Dr. Hart. Today I performed successful cryoablation of the pulmonary veins as well as ablation along the left atrial roof and the upper left atrial posterior wall mcelroy ccessfully without any complications. He had a large right and left atrium with fairly dense smoke and cardio myopathy on intracardiac echo Despite successful ablation in the pulmonary veins and the posterior wall of the left atrium/roof, he remained in atrial fibrillation without any organization and underwent electrical cardioversion for residual atrial fibrillation. It is imperative that he stop alcohol consumption completely and get his sleep apnea assessment. I'm also starting him on beta blockers today and stopping diltiazem Given the fact that he has significant biatrial enlargement, and cardio myopathy is quite likely that he will need multiple ablations in the future. I have had a very detailed discussion with him regarding the central role of alcohol in triggering and perpetuating atrial fibrillation, atriopathy and ventriculopathy. His cardiac condition requires complete abstinence from alcohol Hopefully he will comply with all medical recommendations, particularly with regards to alcohol consumption. Otherwise his short and long-term prognosis for maintaining sinus rhythm and normalizing LV function are dismal. Thank you for entrusting me with the care of the patient Warm regards Sincerely Evert Shipman
[2020-10-10] MEDS: LACTATED RINGERS 1,000 ML IV SCH ×2 (15:58→15:59)
[2020-10-10] MEDS: APIXABAN 5 MG TAB PO SCH (21:24)
[2020-10-10] MEDS: COLCHICINE 0.6 MG EACH PO SCH (21:25)
[2020-10-11 07:19] VITALS: BP 118/71; PULSE 83; RESP 16; TEMP 98.3
[2020-10-11] MEDS: APIXABAN 5 MG TAB PO SCH (08:06)
[2020-10-11] MEDS: SODIUM CHLORIDE 0.9% 1,000 ML IV SCH (08:06)
[2020-10-11] MEDS: COLCHICINE 0.6 MG EACH PO SCH (08:07)
[2020-10-11] MEDS ORDERED: TAMSULOSIN 0.4 MG CAP.ER.24H PO SCH (09:00)
[2020-10-11] MEDS ORDERED: LOSARTAN 50 MG TAB PO SCH (09:00)
[2020-10-11] MEDS ORDERED: hydroCHLOROthiazide 12.5 MG CAP PO SCH (09:00)
--- NOTE | 2020-10-11 15:19 | P.DS ---
Providers Attending physician: Evert Shipman Primary care physician: [facility] Course: Patient has sore throat but no chest discomfort no breathing trouble Doing well on telemetry Groins of healed well minimal tenderness but no hematoma Heart sounds S1 and S2 are normal irregular no murmurs or gallops Lungs are clear no rhonchi no crackles at the bases Abdomen soft nontender Impression persistent atrial fibrillation status post a minute isolation and linear ablation in the roof Electrical cardioversion performed at the end of the procedure. Atrial fibrillation did not organized with PVI and linear ablation on the roof Nonischemic cardio myopathy Biatrial enlargement History of regular alcohol use Plan Continue anticoagulation Stop Cardizem Discharge today in follow-up in the office with Dr. Hart in a week Patient Condition at Discharge: Good Plan - Discharge Summary Discharge Rx Participant: No New Discharge Prescriptions: Discontinued Diltiazem Oral [Cardizem*] 60 mg PO TID #90 tab No Action Omeprazole [PriLOSEC] 20 mg PO DAILY PRN PRN Reason: Heartburn Tamsulosin [Flomax] 0.4 mg PO DAILY Losartan [Cozaar] 50 mg PO DAILY hydroCHLOROthiazide [Hydrodiuril] 12.5 mg PO DAILY Apixaban [Eliquis] 5 mg PO BID #60 tab Discharge Medication List Omeprazole [PriLOSEC] 20 mg PO DAILY PRN 06/10/14 [History] Losartan [Cozaar] 50 mg PO DAILY 02/11/19 [History] Tamsulosin [Flomax] 0.4 mg PO DAILY 02/11/19 [History] hydroCHLOROthiazide [Hydrodiuril] 12.5 mg PO DAILY 02/11/19 [History] Apixaban [Eliquis] 5 mg PO BID #60 tab 07/29/20 [Rx] Follow up Appointment(s)/Referral(s): Oscar Hart MD [STAFF PHYSICIAN] - 10/19/20 10:30 am Patient Instructions/Handouts: Cardiac Ablation (DC) Activity/Diet/Wound Care/Special Instructions: Post EP study - Ablation instructions 1. Keep access sites dry for 2 days. 2. No heavy lifting or straining for 2 days. 3. Avoid bending the hips repeatedly for 2 days. 4. You may go up and down stairs slowly Call if the following is noted 1. Bleeding, increasing swelling or pain at the access sites. 2. Increasing chest discomfort, especially upon taking a deep breath. 3. Increasing shortness of breath, at rest or with exertion. 4. Undue cough / phlegm 5. Difficulty or pain while swallowing. 6. Pain or change in color in the extremities. 7. Fever, chills, rigors. 8. Increasing headache or neurologic symptoms. 9. Dizziness, fainting, palpitations Stop diltiazem Continue ELIQUIS and other cardiac medications Discharge Disposition: HOME SELF-CARE
[2020-10-11] MEDS ORDERED: HYDROcodone/APAP 5-325MG 1 EACH TAB PO PRN (18:52)
[2020-10-11] MEDS ORDERED: ACETAMINOPHEN IV (For NPO) 1,000 MG in EMPTY BAG 1 BAG IVPB ONE (18:52)
[2020-10-11] MEDS ORDERED: ACETAMINOPHEN TAB 325 MG TAB PO PRN (18:52)
--- NOTE | 2020-10-11 18:52 | P.PN ---
Progress Note - Text Diagnosis Paroxysmal atrial fibrillation Procedure Successful cryoablation of the pulmonary veins for paroxysmal atrial fibrillation Plan continue ELIQUIS Continue losartan Continue flecainide 50 mg twice daily
[2020-10-11] MEDS ORDERED: APIXABAN 5 MG TAB PO SCH (21:00)
[2020-10-11] MEDS ORDERED: LORATADINE 10 MG TAB PO SCH (21:00)
[2020-10-11] MEDS ORDERED: FLECAINIDE 50 MG TAB PO SCH (21:00)
[2020-10-12] MEDS ORDERED: LOSARTAN 25 MG TAB PO SCH (09:00)
[2020-10-12] MEDS ORDERED: hydroCHLOROthiazide 12.5 MG CAP PO SCH (09:00)
== END 2020-10-11 13:40 | disposition home or self-care (01) ==
LOC: CATHEP 09:42 → 6NMEDSUR 14:12 → CATHEP 10-11 13:40
PROVIDERS: ATTEND Internal Medicine Clinical Cardiac Electrophysiology
DX: I48.19 Other persistent atrial fibrillation (principal); I42.9 Cardiomyopathy, unspecified; I50.9 Heart failure, unspecified; I11.0 Hypertensive heart disease with heart failure; I08.3 Combined rheumatic disorders of mitral, aortic and tricuspid valves; Z79.899 Other long term (current) drug therapy; Z79.01 Long term (current) use of anticoagulants; G47.33 Obstructive sleep apnea (adult) (pediatric); K21.9 Gastro-esophageal reflux disease without esophagitis
CPT/HCPCS: 92960; 93662; 93609; 93656; C1894 ×2; C1769 ×4; C1760; C1730 ×2; C1759; C1893; C1733; C1766; J2250; J2720; J1644 ×2; J2001; J3010; J0131; J2370; J0330; J2704; Q9967; 93613; 93657

== ENCOUNTER 2021-10-30 19:01 | Observation (INO) | payer BC ==
[2021-10-30] MEDS ORDERED: ASPIRIN 81 MG PO STA (22:37)
[2021-10-30] MEDS ORDERED: NITROGLYCERIN OINT 1 INCH/GM PACKET TOPICAL STA (22:37)
--- NOTE | 2021-10-30 23:12 | XR ---
EXAMINATION TYPE: XR chest 2V DATE OF EXAM: 10/30/2021 COMPARISON: 07/28/2020 HISTORY: Chest pain TECHNIQUE: FINDINGS: Heart and mediastinum are normal. Lungs are clear. Diaphragm is normal. There is some spurr ing in the midthoracic spine. There are no hilar masses. Costophrenic angles are clear. IMPRESSION: No active cardiopulmonary disease. No change in normal heart
--- NOTE | 2021-10-31 00:32 | ED ---
Chest Pain HPI - General Source: patient Mode of arrival: ambulatory Limitations: no limitations <Benito Min - Last Filed: 10/31/21 00:29> - History of Present Illness Complaint: chest pain -: week(s) Onset: during exertion Pain Location: substernal, left chest Pain Radiation: back Severity: moderate Severity scale (1-10): 7 Quality: tightness, heaviness Consistency: intermittent Improves With: nothing Worsens With: exertion Other Symptoms: palpitations Treatments Prior to Arrival: none <Manjeet Hernandes - Last Filed: 10/31/21 02:20> - General Chief Complaint: Chest Pain Stated Complaint: Chest pain,SOB Time Seen by Provider: 10/30/21 22:25 - History of Present Illness Initial Comments: This 56-year-old male presents with a complaint of some chest pain as well as some shortness of breath. The symptoms have been present for approximately 3 weeks. They have been intermittent in nature but worse over the last 2 days. He states that the chest pain and shortness of breath are worse with any exertion. He denies any leg pain or swelling. He denies any history of DVT or PE. He denies any history of coronary artery disease, myocardial infarction, or cardiac stenting. 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 He states that he was able to see that his rhythm was normal for his watch. He denies any fevers or chills. There has been no cough or fever. His last stress test was approximately 1-2 years ago. No other complaints or modifying factors. (Benito Min) - Related Data Home Medications Medication Instructions Recorded Confirmed Omeprazole [PriLOSEC] 20 mg PO DAILY PRN 06/10/14 10/10/20 Tamsulosin [Flomax] 0.4 mg PO DAILY 02/11/19 10/10/20 Previous Rx's Medication Instructions Recorded Flecainide [Tambocor] 50 mg PO Q12HR #90 tablet 10/11/20 Allergies Allergy/AdvReac Type Severity Reaction Status Date / Time No Known Allergies Allergy Verified 10/30/21 19:11 Review of Systems ROS Other: All systems not noted in ROS Statement are negative. <Benito Min - Last Filed: 10/31/21 00:29> ROS Other: All systems not noted in ROS Statement are negative. <Manjeet Hernandes - Last Filed: 10/31/21 02:20> ROS Statement: Those systems with pertinent positive or pertinent negative responses have been documented in the HPI. EKG Findings - EKG Comments: EKG Findings:: EKG is sinus rhythm 85 LA 182 QRS 110 QTc 410 <Manjeet Hernandes - Last Filed: 10/31/21 02:20> Past Medical History Past Medical History: Atrial Fibrillation, GERD/Reflux, Hypertension, Musculoskeletal Disorder, Sleep Apnea/CPAP/BIPAP Additional Past Medical History / Comment(s): HX OF HERNIATED DISC. Possible sleep apnea, has study planned, PT STATES PER ANESTHESIOLOGIST. History of Any Multi-Drug Resistant Organisms: None Reported Past Surgical History: Appendectomy, Orthopedic Surgery Additional Past Surgical History / Comment(s): RIGHT KNEE ARTHROSCOPY, SINUS SURGERY, RT ROTATOR CUFF (03/31/2014). 08/17/20 Cardioversion, [facility] Past Anesthesia/Blood Transfusion Reactions: No Reported Reaction Past Psychological History: No Psychological Hx Reported Smoking Status: Never smoker Past Alcohol Use History: None Reported Past Drug Use History: None Reported - Past Family History Mother Family Medical History: No Reported History Additional Family Medical History / Comment(s): Father with history of brain aneurysm, grandpa with massive heart attack at age of 60 <CamposkellyBenito Coffey - Last Filed: 10/31/21 00:29> General Exam Limitations: no limitations <MechelleBenito Coffey - Last Filed: 10/31/21 00:29> General appearance: alert, in no apparent distress, anxious Head exam: Present: atraumatic, normocephalic, normal inspection Eye exam: Present: normal appearance, PERRL, EOMI. Absent: scleral icterus, conjunctival injection, periorbital swelling ENT exam: Present: normal exam, mucous membranes moist Neck exam: Present: normal inspection. Absent: tenderness, meningismus, lymphadenopathy Respiratory exam: Present: normal lung sounds bilaterally. Absent: respiratory distress, wheezes, rales, rhonchi, stridor Cardiovascular Exam: Present: regular rate, normal rhythm, normal heart sounds. Absent: systolic murmur, diastolic murmur, rubs, gallop, clicks GI/Abdominal exam: Present: soft, normal bowel sounds. Absent: distended, tenderness, guarding, rebound, rigid Extremities exam: Present: normal inspection, full ROM, normal capillary refill. Absent: tenderness, pedal edema, joint swelling, calf tenderness Back exam: Present: normal inspection Neurological exam: Present: alert, oriented X3, CN II-XII intact Psychiatric exam: Present: normal affect, normal mood Skin exam: Present: warm, dry, intact, normal color. Absent: rash <Manjeet Hernandes - Last Filed: 10/31/21 02:20> - General Exam Comments Initial Comments: GENERAL: The patient is well nourished and well hydrated. VITAL SIGNS: Heart rate, blood pressure, respiratory rate reviewed as recorded in nurse's notes. EYES: Pupils are round and reactive. Extraocular movements are intact. No conjunctival / lid redness or swelling. ENT: No external evidence of injury, swelling, or ecchymosis. Airway is patent. Throat is clear. NECK: Nontender. No swelling or evidence of injury. No subcutaneous emphysema. Trachea is midline. No thyroid mass. HEART: Regular rate and rhythm. Good peripheral pulses. LUNGS/CHEST: Breath sounds clear and equal bilaterally. No rales, rhonchi, or wheezes. No ecchymosis, subcutaneous emphysema, or tenderness. ABDOMEN: Abdomen soft without tenderness. No palpable masses or organomegaly. No peritoneal signs. No abdominal wall swelling or ecchymosis. EXTREMITIES: No extremity tenderness. Normal muscle tone and function. No thoracolumbar tenderness. NEUROLOGIC: Sensation is grossly intact. Cranial nerve exam reveals face is symmetrical, tongue is midline, speech is clear. SKIN: No abrasions or ecchymosis is noted. No induration or masses noted. PSYCHIATRIC: Alert and oriented. Appropriate behavior and judgment. (Benito Min) Course <Manjeet Hernandes - Last Filed: 10/31/21 02:20> Vital Signs 10/30/21 10/31/21 19:08 02:01 Temperature 98.6 F Pulse Rate 91 74 Pulse Rate [ 74 Apical] Respiratory 16 18 Rate Blood Pressure 187/83 166/110 O2 Sat by Pulse 99 96 Oximetry - Reevaluation(s) Reevaluation #1: 10/31/21 01:12 Records reviewed (Manjeet Hernandes) Reevaluation #2: 10/31/21 01:12 Patient is informed results and questions answered (Manjeet Hernandes) Chest Pain MDM <Benito Min - Last Filed: 10/31/21 00:29> <Manjeet Hernandes - Last Filed: 10/31/21 02:20> - MDM The patient was seen and examined. All diagnostics are reviewed. The EKG shows a normal sinus rhythm at a rate of 85. There is no acute ST-T wave changes identified. The LA intervals 182, QRS duration is 110, and the QTc interval is 410. Due to overcrowding and under staff and, the patient is initially seen in the waiting room area. Significant delays noted in the obtaining laboratory analysis. The patient does have a chest x-ray done which does not show any acute process. Aspirin and Nitropaste are ordered. (Benito Min) 56 male be admitted for chest pain observation. Patient will be admitted for cardiac evaluation with management (Manjeet Hernandes) Disposition <Benito Min - Last Filed: 10/31/21 00:29> Is patient prescribed a controlled substance at d/c from ED?: No <Manjeet Hernandes - Last Filed: 10/31/21 02:20> Clinical Impression: Unstable angina pectoris, Chest pain, Hypertension, History of atrial fibrillation, Rapid atrial fibrillation Disposition: ADMITTED IP TO THIS HOSP Condition: Undetermined
[2021-10-31 00:53] LABS: Basophils # (A) 0.1 k/uL (0-0.2); Basophils % (A) 1 %; Eosinophils # (A) 0.2 k/uL (0-0.7); Eosinophils % (A) 3 %; HCT 46.9 % (39.0-53.0); HGB 15.3 gm/dL (13.0-17.5); Lymphocytes # (A) 1.3 k/uL (1.0-4.8); Lymphocytes % (A) 19 %; MCH 31.3 pg (25.0-35.0); MCHC 32.7 g/dL (31.0-37.0); MCV 95.6 fL (80.0-100.0); Mean Platelet Volume 7.8; Monocytes # (A) 0.7 k/uL (0-1.0); Monocytes % (A) 11 %; Neutrophils # (A) 4.3 k/uL (1.3-7.7); Neutrophils % (A) 64 %; Platelet Count 205 k/uL (150-450); RBC 4.91 m/uL (4.30-5.90); RDW 12.3 % (11.5-15.5); WBC 6.6 k/uL (3.8-10.6)
[2021-10-31] MEDS ORDERED: ONDANSETRON 4 MG/2 ML VIAL IVP PRN (01:09)
[2021-10-31] MEDS ORDERED: NALOXONE 0.4 MG/ML 1 ML VIAL IV PRN (01:09)
[2021-10-31] MEDS ORDERED: MORPHINE SULFATE 4 MG/ML SYRINGE IV PRN (01:09)
[2021-10-31 01:11] LABS: INR 0.9 (<1.2); Partial Thromboplastin Time 24.9 sec (22.0-30.0); Prothrombin Time 10.1 sec (9.0-12.0)
[2021-10-31 01:15] LABS: ALT 34 U/L (4-49); AST 36 U/L (17-59); African American GFR (CKD) >90 (>60 ml/min/1.73 sqM); Albumin 4.5 g/dL (3.5-5.0); Alkaline Phosphatase 96 U/L (38-126); Anion Gap 12 mmol/L; Blood Urea Nitrogen 15 mg/dL (9-20); Calcium 9.3 mg/dL (8.4-10.2); Carbon Dioxide 25 mmol/L (22-30); Chloride 101 mmol/L (98-107); Glucose 97 mg/dL (74-99); Magnesium 1.9 mg/dL (1.6-2.3); Non-African American GFR(CKD) >90 (>60 ml/min/1.73 sqM); Potassium 3.8 mmol/L (3.5-5.1); Sodium 138 mmol/L (137-145); Total Bilirubin 0.6 mg/dL (0.2-1.3); Total Protein 8.1 g/dL (6.3-8.2)
[2021-10-31] MEDS ORDERED: LORazepam 1 MG TAB PO STA (03:13)
--- NOTE | 2021-10-31 05:20 | P.HPIM ---
History of Present Illness H&P Date: 10/31/21 Chief Complaint: Chest pain 56-year-old male with history of A. fib status post ablation Patient comes in with complaint of recurrent sense of chest pain at is triggered by activity but can also happen at rest. Today he was cooking dinner when suddenly he felt retrosternal chest pressure was associated with feeling dizzy lightheaded palpitations shortness of breath pain was severe 8/ 10 in severity he tried to rest it out with only slight improvement after which she decided to come into the hospital for evaluation as this has been happening over the past 2 weeks as recurrent episodes usually stops him from doing activities. He also reports some exertional dyspnea with relatively mild to moderate activities. He reports having a stress test done a year ago at the time of treating his atrial fibrillation at that time it was unremarkable Patient denies any tobacco smoking illicit drugs or alcohol He denies any recent travel or hospital stay denies any history of blood clots denies any injuries denies any fevers chills coughing or upper respiratory infection and is denies any nausea vomiting abdominal pain or GI bleeding Initial workup in the ED was unremarkable Few days ago patient did have an episode of bigeminy that was picked up on his apple watch he was asymptomatic at the time Review of Systems Pertinent positives as noted in HPI. All other systems were reviewed and are negative Past Medical History Past Medical History: Atrial Fibrillation, GERD/Reflux, Hypertension, Musc uloskeletal Disorder, Sleep Apnea/CPAP/BIPAP Additional Past Medical History / Comment(s): HX OF HERNIATED DISC. Possible sleep apnea, has study planned, PT STATES PER ANESTHESIOLOGIST. History of Any Multi-Drug Resistant Organisms: None Reported Past Surgical History: Appendectomy, Orthopedic Surgery Additional Past Surgical History / Comment(s): RIGHT KNEE ARTHROSCOPY, SINUS SURGERY, RT ROTATOR CUFF (03/31/2014). 08/17/20 Cardioversion, [facility] Past Anesthesia/Blood Transfusion Reactions: No Reported Reaction Past Psychological History: No Psychological Hx Reported Smoking Status: Never smoker Past Alcohol Use History: None Reported Past Drug Use History: None Reported - Past Family History Mother Family Medical History: No Reported History Additional Family Medical History / Comment(s): Father with history of brain aneurysm, grandpa with massive heart attack at age of 60 Medications and Allergies Home Medications Medication Instructions Recorded Confirmed Type Omeprazole [PriLOSEC] 20 mg PO DAILY PRN 06/10/14 10/10/20 History Tamsulosin [Flomax] 0.4 mg PO DAILY 02/11/19 10/10/20 History Flecainide [Tambocor] 50 mg PO Q12HR #90 tablet 10/11/20 Rx Allergies Allergy/AdvReac Type Severity Reaction Status Date / Time No Known Allergies Allergy Verified 10/30/21 19:11 Physical Exam Vitals: Vital Signs Temp Pulse Pulse Resp BP Pulse Ox 10/31/21 03:22 74 16 150/94 96 10/31/21 02:01 74 74 18 166/110 96 10/30/21 19:08 98.6 F 91 16 187/83 99 Intake and Output 10/30/21 10/30/21 10/31/21 14:59 22:59 06:59 Other: Weight 104.326 kg Constitutional: No acute distress, conversant, pleasant Eyes: Anicteric sclerae, moist conjunctiva, Pupils equal round reactive to light ENMT: NC/AT Oropharynx clear, no erythema, or exudates Neck: Supple, FROM, no masses, or JVD No carotid bruits No thyromegaly Lungs: Clear to auscultation Clear to percussion Normal respiratory effort, no accessory muscle use Cardiovascular: Heart regular in rate and rhythm, No murmurs, gallops, or rubs No peripheral edema Abdominal: Soft Nontender, no guarding, rebound or rigidity Abdomen moving with respiration Normoactive bowel sounds No hepatomegaly, No splenomegaly No palpable mass No abdominal wall hernia noted Skin: Normal temperature, tone, texture, turgor No induration No subcutaneous nodules No rash, lesions No ulcers Extremities: No digital cyanosis No clubbing Pedal pulses intact and symmetrical Radial pulses intact and symmetrical No calf tenderness Psychiatric: Alert and oriented to person, place and time Appropriate affect fair judgement Neuro Muscles Strength 5/5 in all 4 extremities Sensation to light touch grossly present throughout Cranial nerves II-XII grossly intact No focal sensory deficits Lymphatics: no palpable cervical or supraclavicular , or inguinal lymph nodes Results CBC & Chem 7: 10/31/21 00:20 10/31/21 00:20 Assessment and Plan Assessment: atypical chest pain rule out ACS EKG no acute changes CXR no acute pathology trops negative 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 fib status post ablation resume eliquis and metoprolol DVT prophylaxis on blood thinners for A. fib Full code
[2021-10-31] MEDS ORDERED: ACETAMINOPHEN TAB 325 MG TAB PO STA (06:34)
[2021-10-31] MEDS ORDERED: PANTOPRAZOLE 40 MG TABLET PO SCH (07:30)
[2021-10-31 08:42] VITALS: BP 133/74; PULSE 72; RESP 18; TEMP 97.5
[2021-10-31] MEDS ORDERED: ASPIRIN 81 MG PO SCH (09:00)
[2021-10-31] MEDS ORDERED: ATORVASTATIN 20 MG TAB PO SCH (09:00)
[2021-10-31] MEDS ORDERED: APIXABAN 5 MG TAB PO SCH (09:00)
[2021-10-31] MEDS ORDERED: METOPROLOL TARTRATE 50 MG TAB PO SCH (09:00)
--- NOTE | 2021-10-31 09:54 | P.CRDCN ---
History of Present Illness History of present illness: - . HPI: This patient has history of probable nonischemic cardiomyopathy persistent atrial fibrillation ceased Dr. Hart. He had a electrical cardioversion followed by a ablation twice in the last one in 2020 and since then has been in sinus rhythm. He also has sleep apnea twice to wear the CPAP but not very consistent. He is here today mainly with complaints of having shortness of br eath even with mild day-to-day activities occasional dizziness and lightheadedness and also nondescript chest tightness. 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 His troponins abnormal d-dimer is normal he is in sinus rhythm clinically patient is doing well but complains of exertional shortness of breath and chest tightness with mild activity. His last stress test and echo were unremarkable and this was in November 2020 ejection fraction was at the low end of normal 52% on the echo with mild mitral and tricuspid insufficiency. He also had a Lexiscan stress test in August 2020 which did not reveal ischemia but ejection fraction was lower however following his conversion to sinus rhythm ejection fraction improved. Patient is resting comfortably without symptoms.. RELEVANT PAST MEDICAL HISTORY: Probable nonischemic cardiomyopathy, persistent atrial fibrillation status post electrical cardioversion and pulmonary vein isolation by Dr. Shipman maintaining sinus rhythm. He also has nonrheumatic mitral valve insufficiency and obstructive sleep apnea.. MEDICATIONS: Currently on Eliquis losartan omeprazole and Flomax and metoprolol succinate 25 mg daily ALLERGIES: None. REVIEW OF SYSTEMS: [Complains of exertional shortness of breath and chest tightness randomly increased lately. No hematemesis melena genitourinary symptoms fever with chills or cough with expectoration. PHYSICIAL EXAM: [Vital signs stable no JVD S1-S2 heard normally soft systolic murmur at the apex gallop lungs are clear abdomen is soft nontender lower extremities revealed palpable pulses no edema central nervous system is grossly within normal limits IMPRESSION: 1. Atypical chest pain. 2. History of persistent A. fib now in sinus rhythm. 3. Shortness of breath. 4. Benign hypertension. 5. Obstructive sleep apnea. RECOMMENDATIONS: Patient presentation is quite atypical. I would do an echo and a stress echo based on these findings will make further recommendations. His troponins abnormal EKG revealed sinus rhythm with PACs no acute findings. Discussed with the patient and will proceed with echo and stress echo based on findings and make further recommendations.. Past Medical History Past Medical History: Atrial Fibrillation, GERD/Reflux, Hypertension, Musculoskeletal Disorder, Sleep Apnea/CPAP/BIPAP Additional Past Medical History / Comment(s): HX OF HERNIATED DISC. Possible sleep apnea, has study planned, PT STATES PER ANESTHESIOLOGIST. History of Any Multi-Drug Resistant Organisms: None Reported Past Surgical History: Appendectomy, Orthopedic Surgery Additional Past Surgical History / Comment(s): RIGHT KNEE ARTHROSCOPY, SINUS SURGERY, RT ROTATOR CUFF (03/31/2014). 08/17/20 Cardioversion, [facility] Past Anesthesia/Blood Transfusion Reactions: No Reported Reaction Past Psychological History: No Psychological Hx Reported Smoking Status: Never smoker Past Alcohol Use History: None Reported Past Drug Use History: None Reported - Past Family History Mother Family Medical History: No Reported History Additional Family Medical History / Comment(s): Father with history of brain aneurysm, grandpa with massive heart attack at age of 60 Medications and Allergies Home Medications Medication Instructions Recorded Confirmed Type Omeprazole [PriLOSEC] 20 mg PO DAILY 06/10/14 10/31/21 History Tamsulosin [Flomax] 0.4 mg PO DAILY 02/11/19 10/31/21 History Apixaban [Eliquis] 5 mg PO BID 10/31/21 10/31/21 History Losartan [Cozaar] 50 mg PO DAILY 10/31/21 10/31/21 History Metoprolol Succinate (ER) [Toprol 25 mg PO HS 10/31/21 10/31/21 History Xl] hydroCHLOROthiazide 12.5 mg PO DAILY 10/31/21 10/31/21 History Allergies Allergy/AdvReac Type Severity Reaction Status Date / Time No Known Allergies Allergy Verified 10/31/21 06:44 Physical Exam Vitals: Vital Signs Temp Pulse Pulse Pulse Resp BP BP 10/31/21 08:15 97.5 F L 72 18 133/74 10/31/21 07:02 69 16 132/82 10/31/21 03:22 74 16 150/94 10/31/21 02:01 74 74 18 166/110 10/30/21 19:08 98.6 F 91 16 187/83 Pulse Ox 10/31/21 08:15 95 10/31/21 07:02 98 10/31/21 03:22 96 10/31/21 02:01 96 10/30/21 19:08 99 Intake and Output 10/30/21 10/31/21 10/31/21 22:59 06:59 14:59 Other: Weight 104.326 kg Results 10/31/21 00:20 10/31/21 00:20 Cardiac Enzymes 10/31/21 10/31/21 10/31/21 Range/Units 00:20 00:20 05:01 AST 36 (17-59) U/L Troponin I <0.012 <0.012 (0.000-0.034) ng/mL 10/31/21 Range/Units 07:41 AST (17-59) U/L Troponin I <0.012 (0.000-0.034) ng/mL Coagulation 10/31/21 Range/Units 00:20 PT 10.1 (9.0-12.0) sec APTT 24.9 (22.0-30.0) sec CBC 10/31/21 Range/Units 00:20 WBC 6.6 (3.8-10.6) k/uL RBC 4.91 (4.30-5.90) m/uL Hgb 15.3 (13.0-17.5) gm/dL Hct 46.9 (39.0-53.0) % Plt Count 205 (150-450) k/uL Comprehensive Metabolic Panel 10/31/21 Range/Units 00:20 Sodium 138 (137-145) mmol/L Potassium 3.8 (3.5-5.1) mmol/L Chloride 101 (98-107) mmol/L Carbon Dioxide 25 (22-30) mmol/L BUN 15 (9-20) mg/dL Creatinine 0.77 (0.66-1.25) mg/dL Glucose 97 (74-99) mg/dL Calcium 9.3 (8.4-10.2) mg/dL AST 36 (17-59) U/L ALT 34 (4-49) U/L Alkaline Phosphatase 96 (38-126) U/L Total Protein 8.1 (6.3-8.2) g/dL Albumin 4.5 (3.5-5.0) g/dL Current Medications Generic Name Dose Route Start Last Admin Trade Name Freq PRN Reason Stop Dose Admin Apixaban 5 mg 10/31/21 09:00 10/31/21 09:24 Apixaban 5 Mg Tab PO 5 mg BID ARISTEO Administration Protocol Atorvastatin Calcium 20 mg 10/31/21 09:00 10/31/21 09:24 Atorvastatin 20 Mg Tab PO 20 mg DAILY ARISTEO Administration Metoprolol Tartrate 50 mg 10/31/21 09:00 10/31/21 09:24 Metoprolol Tartrate 50 Mg Tab PO 50 mg BID ARISTEO Administration Morphine Sulfate 4 mg 10/31/21 01:09 10/31/21 01:36 Morphine Sulfate 4 Mg/Ml Syringe IV 4 mg Q4HR PRN Administration Severe Pain (Scale 7 to 10) Naloxone HCl 0.2 mg 10/31/21 01:09 Naloxone 0.4 Mg/Ml 1 Ml Vial IV Q2M PRN Opioid Reversal Ondansetron HCl 4 mg 10/31/21 01:09 10/31/21 01:36 Ondansetron 4 Mg/2 Ml Vial IVP 4 mg Q8HR PRN Administration Nausea And Vomiting Pantoprazole Sodium 40 mg 10/31/21 07:30 10/31/21 09:24 Pantoprazole 40 Mg Tablet PO 40 mg [id number] ARISTEO Administration Intake and Output 10/30/21 10/31/21 10/31/21 22:59 06:59 14:59 Other: Weight 104.326 kg 10/31/21 00:20 10/31/21 00:20
--- NOTE | 2021-10-31 10:47 | P.DS ---
Providers Date of admission: 10/31/21 01:09 Expected date of discharge: 10/31/21 Attending physician: Wilman Gottlieb MD Consults: 10/31/21 01:09 Consult Physician Routine Consulting Provider: Oscar Hart Consult Reason/Comments: cp Do you want consulting provider notified?: Yes Primary care physician: [facility] Hospital Course: Discharge Diagnosis: Chest pain, acute coronary event ruled out. No medications made to cardiac medication regimen and patient to follow-up with PCP in 1-2 days in cardiology in one week. Patient encouraged to follow heart healthy and carb consistent diet. Paroxysmal Atrial fibrillation, patient is status post cardiac ablation and currently maintaining sinus mechanism. Patient to continue anticoagulation with Eliquis along with metoprolol for daily medication regimen. GERD, continue PPI with omeprazole 20 mg daily. Hypertension, monitor vital signs and continue daily medication regimen with metoprolol, losartan, and hydrochlorothiazide. BPH, continue daily medication regimen with Flomax. Hospital Course: Patient is a very pleasant 56-year-old male with a past medical history of paroxysmal atrial fibrillation status post cardiac ablation on anticoagulation with Eliquis, hypertension, GERD, and BPH. [facility] with a chief complaint of chest pain. Patient reported that while cooking dinner he suddenly felt retrosternal chest pain associated by dizziness/lightheadedness, shortness of breath and palpitations. Patient reported he had been experiencing intermittent episodes of this ongoing over the past 2 weeks but reports this episode lasted longer than it typically did subsequently came into the emergency department for evaluation. In the emergency department patient underwent full evaluation. CBC and CMP were unremarkable. Troponin was negative at less than 0.012. EKG showing normal s inus rhythm at 85 bpm. Chest x-ray negative for acute cardiopulmonary process. Patient was monitored overnight and troponins were trended all resulting negative at less than 0.012. Morning labs completed revealing slightly elevated cholesterol of 216 and LDL of 146.4. Patient encouraged to follow heart healthy and carb consistent diet upon discharge. TSH 6.910 and free T4 normal at 1.220. Hemoglobin A1c 5.9%. Patient underwent stress echo examination. Cardiology reports normal findings, clearing patient from cardiac perspective for follow-up in their office in one week. Patient is medically stable at this time and is currently free from any chest pain or discomfort. Patient instructed he will need to follow-up outpatient in cardiology office to get full stress echo results as full report is not yet available. Patient verbalized understanding and denied having any questions or concerns. Patient is medically stable for discharge and to follow-up with PCP in 1-2 days in cardiology in one week. Physical examination: Vital signs reviewed and stable. General: Nontoxic, no distress and appears stated age. Derm: Skin warm and dry, normal coloration for ethnicity. Head: Atraumatic, normocephalic and symmetric. Eyes: EOMs intact, no lid lag, and anicteric sclera Mouth: no lip lesions, mucus membranes moist Cardiovascular: regular rate and rhythm with normal S1S2, no murmur, positive posterior tibial pulses bilaterally, and cap refill < 2 seconds. Lungs: Respirations even, regular, and unlabored on room air. Lungs CTA ayah aterally, no rhonchi, no rales, no wheezing, and no accessory muscle usage. Abdominal: soft, nontender to palpation, no guarding, no appreciable organomegaly Ext: ROM intact. No gross muscle atrophy, no edema, no contractures Neuro: Speech clear, face symmetrical and CN II-XII grossly intact with no noted focal neuro deficits Psych: Alert and oriented to person, place, time, and situation. Appropriate and pleasant affect. A total of 35 minutes of time were spent preparing this complex discharge summary. Pt was discharged on 10/31/21 at 10:46 AM. I reviewed the documentation as provided by the LIDIA above, who is the original author of this note. I agree with the documented assessment and plan, with the following changes: none Patient Condition at Discharge: Stable Plan - Discharge Summary Discharge Rx Participant: No New Discharge Prescriptions: Continue Omeprazole [PriLOSEC] 20 mg PO DAILY Tamsulosin [Flomax] 0.4 mg PO DAILY Apixaban [Eliquis] 5 mg PO BID Metoprolol Succinate (ER) [Toprol XL] 25 mg PO HS hydroCHLOROthiazide 12.5 mg PO DAILY Losartan [Cozaar] 50 mg PO DAILY Discharge Medication List Omeprazole [PriLOSEC] 20 mg PO DAILY 06/10/14 [History] Tamsulosin [Flomax] 0.4 mg PO DAILY 02/11/19 [History] Apixaban [Eliquis] 5 mg PO BID 10/31/21 [History] Losartan [Cozaar] 50 mg PO DAILY 10/31/21 [History] Metoprolol Succinate (ER) [Toprol XL] 25 mg PO HS 10/31/21 [History] hydroCHLOROthiazide 12.5 mg PO DAILY 10/31/21 [History] Follow up Appointment(s)/Referral(s): Oscar Hart MD [STAFF PHYSICIAN] - 11/08/21 3:00 pm Manjeet Bray MD [Primary Care Provider] - 1-2 days Patient Instructions/Handouts: A-fib (Atrial Fibrillation) (DC), Chest Pain (ED) Activity/Diet/Wound Care/Special Instructions: Activity: As tolerated. Take breaks as needed. Diet: Heart healthy and carb consistent diet. Avoid salts, or foods with hidden salts such as canned or boxed foods and frozen dinners. Extra salt makes your heart work harder and traps the fluid in your body for longer. Special Instructions: Take all of your medications as directed and remember to keep all of your doctor's appointments and follow-up as needed. Thank you for allowing us to participate in your care, it was truly a pleasure having you for our patient!!! And remember as we discussed, if chest pain returns please contact your rn rehabilitation or return to the emergency department immediately for further evaluation. Discharge Disposition: HOME SELF-CARE
[2021-10-31 11:21] LABS: LDL Cholesterol,Calculated 146.4 mg/dL (0.0-131.0); VLDL Calculation 14.22 mg/dL (5.00-40.00)
--- NOTE | 2021-11-01 09:09 | CA ---
Transthoracic Echo Report Name: Pb Bryant Age: 56 Gender: M : 1965 Exam Date: 10/31/2021 09:57 Exam Location: [facility] Ht (in): 72 Wt (lb): 230 Ordering Physician: Shayy Fernandez Attending/Referring Phys: Welding Supervisor Sandra Ring RDCS Procedure CPT: Indications: chest pain, shortness of breath Cardiac Hx: Technical Quality: Fair Contrast 1: Total Dose (mL): Contrast 2: Total Dose (mL): MEASUREMENTS (Male / Female) Normal Values 2D ECHO LV Diastolic Diameter PLAX 3.9 cm 4.2 - 5.9 / 3.9 - 5.3 cm LV Systolic Diameter PLAX 2.8 cm IVS Diastolic Thickness 1.6 cm 0.6 - 1.0 / 0.6 - 0.9 cm LVPW Diastolic Thickness 1.3 cm 0.6 - 1.0 / 0.6 - 0.9 cm LV Relative Wall Thickness 0.7 RV Internal Dim ED PLAX 3.3 cm LA Volume 63.3 cm??? 18 - 58 / 22 - 52 cm??? M-MODE Aortic Root Diameter MM 3.6 cm LA Systolic Diameter MM 3.9 cm LA Ao Ratio MM 1.1 AV Cusp Separation MM 2.2 cm DOPPLER AV Peak Velocity 200.5 cm/s AV Peak Gradient 16.1 mmHg AV Mean Velocity 137.9 cm/s AV Mean Gradient 8.4 mmHg AV Velocity Time Integral 34.6 cm AI Peak Velocity 437.3 cm/s AI Peak Gradient 76.5 mmHg AI Pressure Half Time 340.1 ms LVOT Peak Velocity 167.0 cm/s LVOT Peak Gradient 11.2 mmHg MV Area PHT 2.6 cm??? Mitral E Point Velocity 69.9 cm/s Mitral A Point Velocity 82.8 cm/s Mitral E to A Ratio 0.8 MV Deceleration Time 294.8 ms TR Peak Velocity 257.3 cm/s TR Peak Gradient 26.5 mmHg Right Ventricular Systolic Press 30.4 mmHg PV Peak Velocity 214.5 cm/s PV Peak Gradient 18.4 mmHg PV Mean Velocity 129.6 cm/s PV Mean Gradient 8.6 mmHg PV Velocity Time Integral 43.2 cm FINDINGS Left Ventricle Mildly increased left ventricular wall thickness. Normal left ventricular systolic function with no obvious regional wall motion abnormalities. Left ventricular ejection fraction is estimated at 55-60%. Right Ventricle Normal right ventricular size and function. Right ventricular systolic pressure within normal limits. Right Atrium Normal right atrial size. Left Atrium Mildly increased left atrial volume. Mildly increased left atrial area. Mitral Valve Structurally normal mitral valve. No mitral stenosis, regurgitation or prolapse. Aortic Valve Trileaflet aortic valve. Mild aortic regurgitation. No aortic stenosis. Tricuspid Valve Structurally normal tricuspid valve. Mild tricuspid regurgitation. Pulmonic Valve Structurally normal pulmonic valve. No pulmonic regurgitation. Pericardium No pericardial effusion. Aorta Normal size aortic root and proximal ascending aorta. CONCLUSIONS Normal LV size and systolic function with borderline concentric LVH. Mild mitral and aortic insufficiency. No significant pulmonary hypertension. No pericardial effusion Previewed by: Dr. Luis Randle MD (Electronically Signed) Final Date: 01 November 2021 09:08
--- NOTE | 2021-11-01 09:13 | CA ---
Stress Echo Report Pb Bryant Age: 56 Gender: M : 1965 Exam Date: 10/31/2021 09:40 Exam Location: [facility] Ht (in): 72 Wt (lb): 230 Ordering Physician: Shayy Fernandez Referring Physician: SALLY, Mold Maker Apprentice: AMI Technologist Procedure CPT: Indication: chestpain, shortness of breath ICD-9 Codes: Rhythm: Patient History: CHEST PAIN, DIFFICULTY IN BREATHING, HTN, FAMILY HX OF HEART DISEASE Cardiac Medications: Medications in past 24 hours: Contrast: Stress Results Protocol: Barrera Total dose(mL): Exercise Duration (min:sec): 10.[address] Depression (mm): Angina Score: Wagner Score: METS: 11.7 Resting HR: 80 Resting BP: 120 / 67 Peak HR: 156 Peak BP: 165 / 70 Max Predicted HR: 165 95 % Max Predicted HR Target HR: 140 Double Product: [id number] Stress Summary: BP Response: Reason for Termination: MAX EXERTION/TARGET HR Cardiac Symptoms: ECG Analysis Resting ECG: Stress ECG: Arrhythmia: Echo Analysis Resting Echo: Peak Echo Analysis: MEASUREMENTS (Male/Female) Normal Values CONCLUSIONS Baseline EKG revealed normal sinus rhythm without significant ST-T changes. Patient walked on a standard Barrera protocol for 10 minutes and achieved a maximum heart rate of 151 bpm which is available 85% of predicted maximum. He did not have any angina. He had shortness of breath and some atypical chest pain. There was no evidence of any arrhythmia specifically no atrial fibrillation. There were upsloping nonspecific ST segment changes. However this is considered is a negative stress test with excellent exercise capacity Baseline echo revealed normal wall motion wall thickening of all segments. At peak exercise there was good augmentation of the front wall motion wall thickening of all segments suggesting that there is no evidence of any stress-induced ischemia on this study. Final impression: Excellent x-rays capacity with a negative stress test by EKG criteria and normal stress echocardiogram without evidence of ischemia Dr. Luis Randle MD (Electronically Signed) Final Date: 01 November 2021 09:12
== END 2021-10-31 11:45 | disposition home or self-care (01) ==
LOC: EC 19:01 → 6NMEDSUR 10-31 01:09
PROVIDERS: ADMIT Internal Medicine; ATTEND Internal Medicine
DX: R07.89 Other chest pain (principal); I48.0 Paroxysmal atrial fibrillation; R79.89 Other specified abnormal findings of blood chemistry; I49.1 Atrial premature depolarization; I08.3 Combined rheumatic disorders of mitral, aortic and tricuspid valves; K21.9 Gastro-esophageal reflux disease without esophagitis; I10 Essential (primary) hypertension; N40.0 Benign prostatic hyperplasia without lower urinary tract symptoms; G47.33 Obstructive sleep apnea (adult) (pediatric); Z79.01 Long term (current) use of anticoagulants; Z79.899 Other long term (current) drug therapy; Z90.49 Acquired absence of other specified parts of digestive tract; Z98.890 Other specified postprocedural states; Z82.49 Family history of ischemic heart disease and other diseases of the circulatory system
CPT/HCPCS: 96374; 96375; 99285; 36415; 93005; 93306; 93351; 85379; 84439; 83880; 80061; 80053; 84443; 83735; 84484; 85025; 85610; 85730; 83036; 71046; G0378; J2270; J2405

== ENCOUNTER 2023-02-13 11:55 | Day surgery (SDC) | payer BC ==
[~2023-02-13 11:55] MED LIST changes: -DEXAMETHASONE SOD PHOSPHATE 4 MG/ML 1 ML VIAL IV ONE; +LACTATED RINGERS 1,000 ML IV SCH; -LIDOCAINE 1% (10MG/ML) FOR IV START INTRADERMA PRN; -ONDANSETRON 4 MG/2 ML VIAL IVP ONE
[2023-02-13 14:08] VITALS: RESP 16; TEMP 98.2
[2023-02-13] MEDS ORDERED: LIDOCAINE 1% INJ 10MG/ML (20 ML MDV) ONE (14:15)
[2023-02-13] MEDS ORDERED: PROPOFOL 10 MG/ML 20 ML VIAL IV ONE (14:15)
--- NOTE | 2023-02-13 14:35 | P.PCN ---
Date of Procedure: 02/13/23 Procedure(s) Performed: BRIEF HISTORY: Patient is a 57-year-old pleasant white male scheduled for an elective colonoscopy as a part of evaluation of prior history of colon polyps. Last colonoscopy was 5 years ago. PROCEDURE PERFORMED: Colonoscopy with snare polypectomy. PREOPERATIVE DIAGNOSIS: History of colon polyps. IV sedation per Anesthesia. PROCEDURE: After informed consent was obtained, the patient, was brought into the endoscopy unit. IV sedation was administered by Anesthesia under continuous monitoring. Digital rectal examination was normal. Initially the Olympus CF-160 flexible video colonoscope was then inserted in the rectum, gradually advanced into the cecum without any difficulty. Careful examination was performed as the scope was gradually being withdrawn. Ileocecal valve and the appendiceal orifice were visualized and appeared normal. Prep was excellent. Mucosa of the cecum, and 2 polyps measuring 3 mm and 7 mm in size both of which were removed by cold snare polypectomy. In the hepatic flexure there was a 1 cm broad-based polyp removed by snare polypectomy. Rest of the ascending colon, transverse colon, descending colon, sigmoid colon, and rectum appeared normal. Scattered sigmoid diverticulosis. Retroflexion was performed in the rectum and no lesions were seen. The patient tolerated the procedure well. IMPRESSION: 3 mm and 8 mm cecal polyp status post cold snare polypectomy 1 cm hepatic flexure polyp status post snare polypectomy Scattered sigmoid diverticula cyst. RECOMMENDATIONS: Findings of this examination were discussed with the patient as well as his family.. He was advised to follow with the biopsy results. If the biopsy results adenoma he can have a repeat colonoscopy in 3 years.
[2023-02-13 14:58] VITALS: PULSE 69
[2023-02-13 15:22] VITALS: BP 135/78
== END 2023-02-13 15:24 | disposition home or self-care (01) ==
LOC: ORWHC2ENDO 11:55
PROVIDERS: ATTEND Internal Medicine Gastroenterology
DX: Z12.11 Encounter for screening for malignant neoplasm of colon (principal); D12.0 Benign neoplasm of cecum; D12.3 Benign neoplasm of transverse colon; K57.30 Diverticulosis of large intestine without perforation or abscess without bleeding; I10 Essential (primary) hypertension; I48.91 Unspecified atrial fibrillation; G47.33 Obstructive sleep apnea (adult) (pediatric); F17.200 Nicotine dependence, unspecified, uncomplicated; F12.90 Cannabis use, unspecified, uncomplicated; K21.9 Gastro-esophageal reflux disease without esophagitis; Z79.01 Long term (current) use of anticoagulants; Z79.899 Other long term (current) drug therapy; Z86.010 Personal history of colon polyps
CPT/HCPCS: 88305; 45385; J2001; J2704

== ENCOUNTER 2023-02-13 17:09 | Observation (INO) | payer BC ==
[2023-02-13] MEDS ORDERED: SODIUM CHLORIDE 0.9% 1,000 ML IV STA (18:06)
--- NOTE | 2023-02-13 18:08 | ED ---
General Adult HPI - General Chief complaint: GI Bleed Stated complaint: Post Op of Colonoscopy, Bleeding Time Seen by Provider: 02/13/23 18:06 Source: patient Mode of arrival: ambulatory Limitations: no limitations - History of Present Illness Initial comments: Patient presents to the ED with his son and daughter for evaluation. Patient states that he had a colonoscopy with polypectomy [address] Haro (GI) about 3-1/2 hours ago. Patient states that he developed bright red rectal bleeding after he got home about 3 hours ago, and he states that it has not stopped since then. Patient also states that he has developed some abdominal pain as well. Patient denies trauma or injury, fever or chills, headache, focal neuro deficit, chest pain or pressure, dyspnea, nausea or vomiting, diarrhea, melena, dysuria/hematuria/urinary frequency/urinary symptoms, or any other symptoms or complaints. Patient states that he is on Eliquis due to atrial fibrillation, but he has not taken it for the past 2 days. - Related Data Home Medications Medication Instructions Recorded Confirmed Omeprazole [PriLOSEC] 20 mg PO DAILY PRN 06/10/14 02/13/23 Tamsulosin [Flomax] 0.4 mg PO QAM 02/11/19 02/13/23 Apixaban [Eliquis] 5 mg PO BID 10/31/21 02/13/23 Losartan [Cozaar] 50 mg PO QAM 10/31/21 02/13/23 Metoprolol Succinate (ER) [Toprol 25 mg PO HS 10/31/21 02/13/23 XL] hydroCHLOROthiazide 12.5 mg PO QAM 10/31/21 02/13/23 Allergies Allergy/AdvReac Type Severity Reaction Status Date / Time No Known Allergies Allergy Verified 02/13/23 17:59 Review of Systems ROS Statement: Those systems with pertinent positive or pertinent negative responses have been documented in the HPI. ROS Other: All systems not noted in ROS Statement are negative. Past Medical History Past Medical History: Atrial Fibrillation, GERD/Reflux, Hypertension, Musculoskeletal Disorder, Sleep Apnea/CPAP/BIPAP Additional Past Medical History / Comment(s): hx. of herniated disc, sleep apnea - tries to use CPAP, GI scope History of Any Multi-Drug Resistant Organisms: None Reported Past Surgical History: Appendectomy, Orthopedic Surgery Additional Past Surgical History / Comment(s): RIGHT KNEE ARTHROSCOPY, SINUS SURGERY, RT ROTATOR CUFF (03/31/2014). 08/17/20 Cardioversion w/KOLTON, cardiac ablation 2020 - has stayed in sinus rhythm since Past Anesthesia/Blood Transfusion Reactions: No Reported Reaction Past Psychological History: No Psychological Hx Reported Smoking Status: Never smoker Past Alcohol Use History: None Reported Past Drug Use History: None Reported - Past Family History Mother Family Medical History: No Reported History Father Additional Family Medical History / Comment(s): brain aneurysm. paternal grandfather [place] age 60 General Exam Limitations: no limitations General appearance: alert, in no apparent distress Head exam: Present: normocephalic Eye exam: Present: normal appearance ENT exam: Present: mucous membranes moist Respiratory exam: Present: normal lung sounds bilaterally. Absent: respiratory distress, wheezes, rales, rhonchi, stridor Cardiovascular Exam: Present: regular rate, normal rhythm, normal heart sounds, other (Normal radial pulses bilaterally) GI/Abdominal exam: Present: soft, normal bowel sounds, other (Mild generalized abdominal tenderness). Absent: distended, guarding, rebound Rectal exam: Present: normal rectal tone, other (Reddish-brown stool was retrieved on digital rectal exam and sent for Hemoccult testing). Absent: tenderness Extremities exam: Absent: pedal edema Neurological exam: Present: alert, oriented X3 Psychiatric exam: Present: normal affect Skin exam: Present: warm, dry, normal color Course Vital Signs 02/13/23 02/13/23 17:57 19:30 Temperature 97.9 F Pulse Rate 79 84 Respiratory 18 18 Rate Blood Pressure 169/74 163/91 O2 Sat by Pulse 96 98 Oximetry - Reevaluation(s) Reevaluation #1: 02/13/23 21:27 Case, H&P, test results and ED management were discussed with Dr. Haro (GI). She recommends hospital admission and keeping the patient nothing by mouth. She states that she will likely perform another colonoscopy on the patient in the m orning, but she has to call her back of the patient's bleeding continues or becomes worse. She has no further recommendations at this time. 02/13/23 21:30 Patient and family are aware the patient's test results. Patient remains hemodynamically stable and continues to have a nonsurgical abdominal exam. Patient is aware of his test results and my discussion with Dr. Haro as above, and he agrees with hospital admission at this time. 02/13/23 21:35 Case, H&P, test results, ED management and my discussion with Dr. Haro as above were discussed with Dr. Gottlieb. He accepts hospital admission. He has no further recommendations at this time. Medical Decision Making - Medical Decision Making Was pt. sent in by a medical professional or institution (, PA, HEEL PACKER, urgent care, hospital, or shelter...) When possible be specific @ -No Did you speak to anyone other than the patient for history (EMS, parent, family, police, friend...)? What history was obtained from this source @ -No Did you review nursing and triage notes (agree or disagree)? Why? @ -I reviewed and agree with nursing and triage notes Were old charts reviewed (outside hosp., previous admission, EMS record, old EKG, old radiological studies, urgent care reports/EKG's, shelter records)? Report findings @ -No old charts were reviewed Differential Diagnosis (chest pain, altered mental status, abdominal pain women, abdominal pain men, vaginal bleeding, weakness, fever, dyspnea, syncope, headache, dizziness, GI bleed, back pain, seizure, CVA, palpatations, mental health, musculoskeletal)? @ -Differential GI Bleed: Esophageal varices, aortoenteric fistula, Ofelia-Robles, gastritis, peptic ulcer disease, diverticulosis, inflammatory bowel disease, hemorrhoids, fissure, colitis, malignancy, Meckels diverticulum, bowel perforation, vascular injury, post-colonoscopy complication, anemia, coagulopathy, this is not meant to be an all-inclusive list. EKG interpreted by me (3pts min.). @ -None done X-rays interpreted by me (1pt min.). @ -None done CT interpreted by me (1pt min.). @ -CT abdomen/pelvis with IV contrast was reviewed myself and shows no acute abnormality. I agree with the radiologist's interpretation as above. U/S interpreted by me (1pt. min.). @ -None done What testing was considered but not performed or refused? (CT, X-rays, U/S, labs)? Why? @ -None What meds were considered but not given or refused? Why? @ -None Did you discuss the management of the patient with other professionals (professionals i.e. DrTerese, PA, HEEL PACKER, lab, RT, psych nurse, social studies teacher, senior business analyst, teacher, global safety officer, spring encaser)? Give summary @ -As above Was smoking cessation discussed for >3mins.? @ -No Was critical care preformed (if so, how long)? @ -No Were there social determinants of health that impacted care today? How? (Homelessness, low income, unemployed, alcoholism, drug addiction, transportation, low edu. Level, literacy, decrease access to med. care, [facility], rehab)? @ -No Was there de-escalation of care discussed even if they declined (Discuss DNR or withdrawal of care, Hospice)? DNR status @ -No What co-morbidities impacted this encounter? (DM, HTN, Smoking, COPD, CAD, Cancer, CVA, ARF, Chemo, Hep., AIDS, mental health diagnosis, sleep apnea, morbid obesity)? @ -None Was patient admitted / discharged? Hospital course, mention meds given and route, prescriptions, significant lab abnormalities, going to OR and other pertinent info. @ -Patient has been hemodynamically stable while in the ED. Patient's hemoglobin is within normal limits. Patient's labs and CT abdomen/pelvis with IV contrast are all fairly unremarkable. She has a soft and nonsurgical abdominal exam. I have discussed all of these findings with the on-call GI specialist (Dr. Haro). She recommends hospital admission. She also recommends keeping the patient NPO. Case was also discussed with Dr. Gottlieb who has accepted hospital admission. Undiagnosed new problem with uncertain prognosis? @ -No Drug Therapy requiring intensive monitoring for toxicity (Heparin, Nitro, Insulin, Cardizem)? @ -No Were any procedures done? @ -No Diagnosis/symptom? @ -Post-colonoscopy rectal bleeding Acute, or Chronic, or Acute on Chronic? @ -acute Uncomplicated (without systemic symptoms) or Complicated (systemic symptoms)? @ -default Side effects of treatment? @ -No Exacerbation, Progression, or Severe Exacerbation? @ -No Poses a threat to life or bodily function? How? (Chest pain, [place], [place], pneumonia, PE, COPD, DKA, ARF, appy, cholecystitis, CVA, Diverticulitis, Homicidal, Figueroa icidal, threat to staff... and all critical care pts) @ -Possible - Lab Data Result diagrams: 02/13/23 18:24 02/13/23 18:24 Lab Results 02/13/23 02/13/23 02/13/23 Range/Units 18:24 18:24 18:24 WBC 7.3 (3.8-10.6) k/uL RBC 4.55 (4.30-5.90) m/uL Hgb 14.7 (13.0-17.5) gm/dL Hct 42.8 (39.0-53.0) % MCV 94.0 (80.0-100.0) fL MCH 32.3 (25.0-35.0) pg MCHC 34.4 (31.0-37.0) g/dL RDW 12.7 (11.5-15.5) % Plt Count 195 (150-450) k/uL MPV 8.0 Neutrophils % 67 % Lymphocytes % 17 % Monocytes % 11 % Eosinophils % 2 % Basophils % 1 % Neutrophils # 4.9 (1.3-7.7) k/uL Lymphocytes # 1.3 (1.0-4.8) k/uL Monocytes # 0.8 (0-1.0) k/uL Eosinophils # 0.1 (0-0.7) k/uL Basophils # 0.1 (0-0.2) k/uL PT 10.6 (10.0-12.5) sec INR 1.0 (<1.2) APTT 25.3 (22.0-30.0) sec Sodium 140 (137-145) mmol/L Potassium 3.7 (3.5-5.1) mmol/L Chloride 106 (98-107) mmol/L Carbon Dioxide 22 (22-30) mmol/L Anion Gap 12 mmol/L BUN 15 (9-20) mg/dL Creatinine 0.72 (0.66-1.25) mg/dL Est GFR (CKD-EPI)AfAm >90 (>60 ml/min/1.73 sqM) Est GFR (CKD-EPI)NonAf >90 (>60 ml/min/1.73 sqM) Glucose 99 (74-99) mg/dL Calcium 9.4 (8.4-10.2) mg/dL Total Bilirubin 0.7 (0.2-1.3) mg/dL AST 40 (17-59) U/L ALT 41 (4-49) U/L Alkaline Phosphatase 75 (38-126) U/L Total Protein 8.1 (6.3-8.2) g/dL Albumin 4.4 (3.5-5.0) g/dL Lipase 107 (23-300) U/L Stool Occult Blood (Negative) 02/13/23 Range/Units 18:24 WBC (3.8-10.6) k/uL RBC (4.30-5.90) m/uL Hgb (13.0-17.5) gm/dL Hct (39.0-53.0) % MCV (80.0-100.0) fL MCH (25.0-35.0) pg MCHC (31.0-37.0) g/dL RDW (11.5-15.5) % Plt Count (150-450) k/uL MPV Neutrophils % % Lymphocytes % % Monocytes % % Eosinophils % % Basophils % % Neutrophils # (1.3-7.7) k/uL Lymphocytes # (1.0-4.8) k/uL Monocytes # (0-1.0) k/uL Eosinophils # (0-0.7) k/uL Basophils # (0-0.2) k/uL PT (10.0-12.5) sec INR (<1.2) APTT (22.0-30.0) sec Sodium (137-145) mmol/L Potassium (3.5-5.1) mmol/L Chloride (98-107) mmol/L Carbon Dioxide (22-30) mmol/L Anion Gap mmol/L BUN (9-20) mg/dL Creatinine (0.66-1.25) mg/dL Est GFR (CKD-EPI)AfAm (>60 ml/min/1.73 sqM) Est GFR (CKD-EPI)NonAf (>60 ml/min/1.73 sqM) Glucose (74-99) mg/dL Calcium (8.4-10.2) mg/dL Total Bilirubin (0.2-1.3) mg/dL AST (17-59) U/L ALT (4-49) U/L Alkaline Phosphatase (38-126) U/L Total Protein (6.3-8.2) g/dL Albumin (3.5-5.0) g/dL Lipase (23-300) U/L Stool Occult Blood Positive (Negative) - Radiology Data CT abdomen/pelvis with IV contrast Disposition Clinical Impression: Colonoscopy causing post-procedural bleeding, Rectal bleeding Disposition: ADMITTED IP TO THIS HOSP Condition: Stable Is patient prescribed a controlled substance at d/c from ED?: No Referrals: Manjeet Bray MD [Primary Care Provider] - 1-2 days Time of Disposition: 21:39
[2023-02-13] MEDS ORDERED: MORPHINE SULFATE 4 MG/ML SYRINGE IVP STA ×2 (18:37→20:36)
[2023-02-13 18:53] LABS: Basophils # (A) 0.1 k/uL (0-0.2); Basophils % (A) 1 %; Eosinophils # (A) 0.1 k/uL (0-0.7); Eosinophils % (A) 2 %; HCT 42.8 % (39.0-53.0); HGB 14.7 gm/dL (13.0-17.5); Lymphocytes # (A) 1.3 k/uL (1.0-4.8); Lymphocytes % (A) 17 %; MCH 32.3 pg (25.0-35.0); MCHC 34.4 g/dL (31.0-37.0); Monocytes # (A) 0.8 k/uL (0-1.0); Monocytes % (A) 11 %; Neutrophils # (A) 4.9 k/uL (1.3-7.7); Neutrophils % (A) 67 %; Platelet Count 195 k/uL (150-450); RBC 4.55 m/uL (4.30-5.90); RDW 12.7 % (11.5-15.5); WBC 7.3 k/uL (3.8-10.6)
[2023-02-13 19:02] LABS: Partial Thromboplastin Time 25.3 sec (22.0-30.0); Prothrombin Time 10.6 sec (10.0-12.5)
[2023-02-13 19:03] LABS: ALT 41 U/L (4-49); AST 40 U/L (17-59); African American GFR (CKD) >90 (>60 ml/min/1.73 sqM); Albumin 4.4 g/dL (3.5-5.0); Alkaline Phosphatase 75 U/L (38-126); Anion Gap 12 mmol/L; Blood Urea Nitrogen 15 mg/dL (9-20); Calcium 9.4 mg/dL (8.4-10.2); Carbon Dioxide 22 mmol/L (22-30); Chloride 106 mmol/L (98-107); Glucose 99 mg/dL (74-99); Lipase 107 U/L (23-300); Non-African American GFR(CKD) >90 (>60 ml/min/1.73 sqM); Potassium 3.7 mmol/L (3.5-5.1); Sodium 140 mmol/L (137-145); Total Bilirubin 0.7 mg/dL (0.2-1.3); Total Protein 8.1 g/dL (6.3-8.2)
[2023-02-13] MEDS ORDERED: ONDANSETRON 4 MG/2 ML VIAL IVP STA (20:36)
--- NOTE | 2023-02-13 21:12 | CT ---
EXAMINATION TYPE: CT abdomen pelvis w con DATE OF EXAM: 02/13/2023 COMPARISON: None HISTORY: GI bleed and abd pain s/p colonoscopy CT DLP: 1457.1 mGycm CONTRAST: CT scan of the abdomen and pelvis is performed without Oral Contrast and with IV Contrast, patient in jected with 100 mL of Isovue 370. FINDINGS: LUNG BASES-: No visible nodule. No infiltrate. Hepatic steatosis. LIVER/GB: No calcified gallstones. No space occupying hepatic lesion. Biliary tree is of normal ca liber. PANCREAS: No inflammation. No distinct mass. SPLEEN: No splenic enlargement. No lesion seen. ADRENALS: No nodule. No thickening. KIDNEYS/BLADDER: No hydronephrosis. No nephrolithiasis. No distinct renal mass. Urinary bladder g rossly unremarkable. BOWEL: Normal bowel caliber. No inflammation. Sigmoid diverticulosis without diverticulitis. Mild ai r distention of the colon compatible with the provided history. Nonvisualization of the appendix. No free air. No evidence of perforation. GENITAL ORGANS: No gross abnormality. LYMPH NODES: No greater than 1cm abdominal or pelvic lymph nodes are appreciated. AORTA: No significant abnormality. OSSEOUS STRUCTURES: No significant abnormality is seen. OTHER: No significant additional abnormality is seen. IMPRESSION: 1. Sigmoid diverticulosis without diverticulitis. Mild air distention of the colon compatible with th e provided history. Nonvisualization of the appendix. No free air. No evidence of perforation.
[2023-02-13] MEDS ORDERED: NALOXONE 0.4 MG/ML 1 ML VIAL IV PRN (21:39)
[2023-02-13] MEDS ORDERED: ONDANSETRON 4 MG/2 ML VIAL IVP PRN (21:39)
[2023-02-13] MEDS: SODIUM CHLORIDE 0.9% 1,000 ML IV SCH (22:17)
--- NOTE | 2023-02-14 01:56 | P.HPIM ---
History of Present Illness H&P Date: 02/14/23 Patient is a 57-year-old male with a PMH of A. fib on Eliquis, hypertension, BPH, and GERD who presents to the emergency room with complaints of GI bleeding. The patient underwent colonoscopy earlier today with Dr. Haro where 3 polyps were removed. Shortly after returning home he developed right red blood per rectum. Reports having 5 loose bowel movements with "blood pouring out" prior to arrival at the emergency room. Also reports mild right lower quadrant abdominal discomfort, rated at a 3 out of 10. Denies experiencing fever, chills, chest pain, shortness of breath, nausea, vomiting. Has had a total of 7 similar bowel movements now. Denies experiencing dizziness. CT abdomen and pelvis in the emergency room was unremarkable. Laboratory evaluation revealed a hemoglobin of 14.7 with fecal occult blood positive. ED documentation reviewed and case discussed with ED provider. Review of systems: Pertinent positives and negatives as discussed in HPI, a complete review of systems was performed and all other systems are negative. Physical examination: Vital signs reviewed General: non toxic, no distress, appears at stated age, overweight Derm: no unusual rashes/lesions, warm Head: atraumatic, normocephalic, symmetric Eyes: EOMI, no lid lag, anicteric sclera, pupils equal round reactive to light ENT: Nose and ears atraumatic Neck: No cervical lymphadenopathy, trachea midline, supple Mouth: no lip lesion, mucus membranes moist Cardiovascular: S1S2 reg, no murmur, positive dorsalis pedis pulse bilateral, no edema Lungs: CTA bilateral, no rhonchi, no rales, no accessory muscle use Abdominal: soft, mild right lower quadrant abdominal tenderness, no guarding Ext: muscle strength 5 out of 5 in all 4 extremities grossly, no gross muscle atrophy, no contractures, Neuro: CN II-XI grossly intact, no gross focal neuro deficits Psych: Alert, oriented, appropriate affect Assessment: Hematochezia post-op colonoscopy with polyp removal Chronic conditions: A. fib (Eliquis being held for prior 48 hours for colonscopy), hypertension, BPH, GERD Imaging: CT abdomen and pelvis in the emergency room was unremarkable Data Review: Laboratory evaluation revealed a hemoglobin of 14.7 with fecal occult blood positive. Plan: Monitor CBC GI consulted Nothing by mouth for now Continue with IV fluid normal saline 120 mL/h DVT prophylaxis: IPCDs The patient is admitted with an anticipated less than 2 midnight stay for e valuation of GIB CODE STATUS: Full Code Discussed with: Patient Anticipated discharge place: Home Past Medical History Past Medical History: Atrial Fibrillation, GERD/Reflux, Hypertension, Musculoskeletal Disorder, Sleep Apnea/CPAP/BIPAP Additional Past Medical History / Comment(s): hx. of herniated disc, sleep apnea - tries to use CPAP, GI scope History of Any Multi-Drug Resistant Organisms: None Reported Past Surgical History: Appendectomy, Orthopedic Surgery Additional Past Surgical History / Comment(s): RIGHT KNEE ARTHROSCOPY, SINUS SURGERY, RT ROTATOR CUFF (03/31/2014). 08/17/20 Cardioversion w/KOLTON, cardiac ablation 2020 - has stayed in sinus rhythm since Past Anesthesia/Blood Transfusion Reactions: No Reported Reaction Past Psychological History: No Psychological Hx Reported Smoking Status: Never smoker Past Alcohol Use History: None Reported Past Drug Use History: None Reported - Past Family History Mother Family Medical History: No Reported History Father Additional Family Medical History / Comment(s): brain aneurysm. paternal grandfather [place] age 60 Medications and Allergies Home Medications Medication Instructions Recorded Confirmed Type Omeprazole [PriLOSEC] 20 mg PO DAILY PRN 06/10/14 02/13/23 History Tamsulosin [Flomax] 0.4 mg PO DAILY 02/11/19 02/13/23 History Apixaban [Eliquis] 5 mg PO BID 10/31/21 02/13/23 History Losartan [Cozaar] 50 mg PO DAILY 10/31/21 02/13/23 History Metoprolol Succinate (ER) [Toprol 25 mg PO DAILY 10/31/21 02/13/23 History XL] hydroCHLOROthiazide 12.5 mg PO DAILY 10/31/21 02/13/23 History Cholecalciferol [Vitamin D3 (25 50 mcg PO DAILY 02/13/23 02/13/23 History Mcg = 1000 Iu)] Sertraline [Zoloft] 50 mg PO DAILY 02/13/23 02/13/23 History Allergies Allergy/AdvReac Type Severity Reaction Status Date / Time No Known Allergies Allergy Verified 02/13/23 22:02 Physical Exam Vitals: Vital Signs Temp Pulse Resp BP Pulse Ox 02/14/23 00:00 88 16 146/80 97 12/20/23 19:53 154/89 02/13/23 19:30 84 18 163/91 98 02/13/23 17:57 97.9 F 79 18 169/74 96 Intake and Output 02/13/23 02/13/23 02/14/23 14:59 22:59 06:59 Other: Weight 104.326 kg Results CBC & Chem 7: 02/13/23 18:24 02/13/23 18:24
[2023-02-14] MEDS: MORPHINE SULFATE 4 MG/ML SYRINGE IV PRN ×3 (02:49→18:15)
[2023-02-14] MEDS: SODIUM CHLORIDE 0.9% 1,000 ML IV SCH ×3 (05:06→22:50)
[2023-02-14 06:49] LABS: Basophils % (A) 0 %; Eosinophils # (A) 0.1 k/uL (0-0.7); Eosinophils % (A) 1 %; HCT 37.6 % (39.0-53.0); HGB 12.5 gm/dL (13.0-17.5); Lymphocytes # (A) 0.8 k/uL (1.0-4.8); Lymphocytes % (A) 13 %; MCH 31.9 pg (25.0-35.0); MCHC 33.2 g/dL (31.0-37.0); MCV 95.9 fL (80.0-100.0); Mean Platelet Volume 8.3; Monocytes # (A) 0.7 k/uL (0-1.0); Monocytes % (A) 11 %; Neutrophils # (A) 4.7 k/uL (1.3-7.7); Neutrophils % (A) 73 %; Platelet Count 162 k/uL (150-450); RBC 3.93 m/uL (4.30-5.90); RDW 12.9 % (11.5-15.5); WBC 6.5 k/uL (3.8-10.6)
[2023-02-14 07:15] LABS: ALT 33 U/L (4-49); AST 30 U/L (17-59); African American GFR (CKD) >90 (>60 ml/min/1.73 sqM); Albumin 3.5 g/dL (3.5-5.0); Alkaline Phosphatase 81 U/L (38-126); Anion Gap 6 mmol/L; Blood Urea Nitrogen 13 mg/dL (9-20); Calcium 8.5 mg/dL (8.4-10.2); Carbon Dioxide 23 mmol/L (22-30); Chloride 107 mmol/L (98-107); Glucose 109 mg/dL (74-99); Non-African American GFR(CKD) >90 (>60 ml/min/1.73 sqM); Potassium 3.8 mmol/L (3.5-5.1); Sodium 136 mmol/L (137-145); Total Bilirubin 0.6 mg/dL (0.2-1.3); Total Protein 6.7 g/dL (6.3-8.2)
[2023-02-14] MEDS ORDERED: MAGNESIUM CITRATE 296 ML BOTTLE PO ONE (07:46)
--- NOTE | 2023-02-14 09:21 | P.CONS ---
History of Present Illness - Reason for Consult Consult date: 02/14/23 Post colonoscopy rectal bleeding Requesting physician: Mahesh Zhang - Chief Complaint Rectal bleeding - History of Present Illness There is a pleasant 57-year-old male who was scheduled yesterday for elective colonoscopy as part of evaluation for prior history of colon polyps. He also has a history of atrial fibrillation and was taking Eliquis last taken on 02/11/2023. He underwent colonoscopy with tomorrow and was found to have 2 cecal polyps measuring 3 mm and 8 mm status post cold snare polypectomy, one 1 cm hepatic flexure polyp status post snare polyp to ny, and scattered sigmoid diverticulosis. He was sent to recovery without any complications. She was then discharged home. Once the patient got home later in the afternoon he started developing active bleeding and lower abdominal cramping. He states is mostly on the right side. He had several episodes of rectal bleeding last one about 2 hours ago. Initial hemoglobin on admission was 14.7 with a drop today to 12.5. He states he did have some nausea yesterday but no vomiting. He continues to have lower abdominal cramping mostly on the right and reports the bleeding as bright red. Review of Systems REVIEW OF SYSTEMS: CARDIOPULMONARY: No chest pain, shortness of breath. Gastrointestinal: abdominal cramping, greater on the right. Nausea but no vomiting. No hematemesis, coffee-ground emesis. No rectal bleeding, or melena. GENITOURINARY: No dysuria or hematuria. MUSCULOSKELETAL: Reports normal range of motion., Joint pain. SKIN: No rashes. No jaundice. ENDOCRINE: No chills, fevers. No excessive weight gain or loss. No polydipsia or polyuria. PSYCHIATRIC: Unremarkable. NEUROLOGY: No change in mental status. Denies dizziness, as patient has headache. ENT: Vision unremarkable. CONSTITUTIONAL: No recent weight loss. No fever, chills, night sweats. Past Medical History Past Medical History: Atrial Fibrillation, GERD/Reflux, Hypertension, Musculoskeletal Disorder, Sleep Apnea/CPAP/BIPAP Additional Past Medical History / Comment(s): hx. of herniated disc, sleep apnea - tries to use CPAP, GI scope History of Any Multi-Drug Resistant Organisms: None Reported Past Surgical History: Appendectomy, Orthopedic Surgery Additional Past Surgical History / Comment(s): RIGHT KNEE ARTHROSCOPY, SINUS SURGERY, RT ROTATOR CUFF (03/31/2014). 08/17/20 Cardioversion w/KOLTON, cardiac ablation 2020 - has stayed in sinus rhythm since Past Anesthesia/Blood Transfusion Reactions: No Reported Reaction Past Psychological History: No Psychological Hx Reported Smoking Status: Never smoker Past Alcohol Use History: None Reported Past Drug Use History: None Reported - Past Family History Mother Family Medical History: No Reported History Father Additional Family Medical History / Comment(s): brain aneurysm. paternal grandfather [place] age 60 Medications and Allergies Home Medications Medication Instructions Recorded Confirmed Type Omeprazole [PriLOSEC] 20 mg PO DAILY PRN 06/10/14 02/13/23 History Tamsulosin [Flomax] 0.4 mg PO DAILY 02/11/19 02/13/23 History Apixaban [Eliquis] 5 mg PO BID 10/31/21 02/13/23 History Losartan [Cozaar] 50 mg PO DAILY 10/31/21 02/13/23 History Metoprolol Succinate (ER) [Toprol 25 mg PO DAILY 10/31/21 02/13/23 History XL] hydroCHLOROthiazide 12.5 mg PO DAILY 10/31/21 02/13/23 History Cholecalciferol [Vitamin D3 (25 50 mcg PO DAILY 02/13/23 02/13/23 History Mcg = 1000 Iu)] Sertraline [Zoloft] 50 mg PO DAILY 02/13/23 02/13/23 History Allergies Allergy/AdvReac Type Severity Reaction Status Date / Time No Known Allergies Allergy Verified 02/13/23 22:02 Physical Exam Vitals: Vital Signs Temp Pulse Resp BP Pulse Ox 02/14/23 06:00 68 20 137/89 98 02/14/23 02:51 66 16 137/89 98 02/14/23 00:00 88 16 146/80 97 02/13/23 19:53 154/89 02/13/23 19:30 84 18 163/91 98 02/13/23 17:57 97.9 F 79 18 169/74 96 Intake and Output 02/13/23 02/14/23 02/14/23 22:59 06:59 14:59 Other: Weight 104.326 kg General appearance: The patient is alert, oriented, appears in no acute distress. HET: Head is normocephalic and atraumatic. Conjunctiva pink. Sclera anicteric. Neck: Supple without lymphadenopathy. Trachea midline. Heart: Regular. Lungs: Equal expansion, normal respiratory effort. Abdomen: Soft, lower abdominal tenderness, greater on the right, nondistended. No guarding or rigidity. Skin: No rashes. No jaundice. Extremities: Normal skin color and turgor. No pedal edema. Neurological: No focal deficits. Alert and oriented x3. Results CBC & Chem 7: 02/14/23 05:57 02/14/23 05:57 Labs: Abnormal Lab Results - Last 24 Hours (Table) 02/14/23 02/14/23 Range/Units 05:57 05:57 RBC 3.93 L (4.30-5.90) m/uL Hgb 12.5 L (13.0-17.5) gm/dL Hct 37.6 L (39.0-53.0) % Lymphocytes # 0.8 L (1.0-4.8) k/uL Sodium 136 L (137-145) mmol/L Glucose 109 H (74-99) mg/dL Comments: CT abdomen pelvis with contrast report sigmoid diverticulosis without diverticulitis. Mild air distention of the colon compatible with the provided history. Nonvisualization of the appendix. No free air. No evidence of perforation. Assessment and Plan (1) Post-polypectomy bleeding Narrative/Plan: 57-year-old who had an elective colonoscopy yesterday as part of his screening for previous history of colon polyps who is also on Eliquis for atrial fibrillation underwent polypectomy yesterday and presented back to the emergency department with bright red rectal bleeding. He continues to have rectal bleeding with a 2 g drop in his hemoglobin. Likely post polypectomy bleed however cannot rule out possible diverticular bleed as well as patient did have sigmoid diverticulosis. Will plan for repeat colonoscopy. Current Visit: Yes Status: Acute Code(s): [id number] - SNOMED Code(s): 659779422 Plan: 1. Keep nothing by mouth 2. IV acetaminophen for pain 3. Magnesium citrate 1 dose this morning 4. Plan for repeat colonoscopy this afternoon 5. Daily CBC, transfuse for hemoglobin less than 7 6. Hold anticoagulation Thank you for this consultation, we will continue to follow. Dr. La Haro I agree with the dictator's note, documented as a scribe by Juliana Alexandre.
[2023-02-14] MEDS: ACETAMINOPHEN IV (For NPO) 1,000 MG in EMPTY BAG 1 BAG IVPB SCH ×3 (09:56→18:45)
[2023-02-14] MEDS ORDERED: PROPOFOL 10 MG/ML 20 ML VIAL IV ONE (13:51)
[2023-02-14] MEDS ORDERED: IV FLUID CONTINUATION 200 ML IV ONE (13:51)
[2023-02-14] MEDS ORDERED: SODIUM CHLORIDE 0.9% 500 ML 500 ML IV ONE (14:14)
--- NOTE | 2023-02-14 14:20 | P.PCN ---
Date of Procedure: 02/14/23 Procedure(s) Performed: BRIEF HISTORY: Patient is a 57-year-old pleasant white male admitted to the hospital with post polypectomy lower GI bleed. He underwent a colonoscopy yesterday afternoon and was noted to have 3 mm and 8 mm cecal polyp by the appendiceal orifice and 1 cm hepatic flexure polyp that was removed by snare polypectomy. 3 hours following the procedure he started having bright red blood per rectum and came to the emergency room yesterday evening and subsequently admitted hospital. Through the night he continued to have several episodes of bright red blood per rectum. Initial hemoglobin was 14 g/dL subsequently dropped to 12 g/dL. Computed tomography scan showed diverticulosis. He scheduled for colonoscopy for possible polyp rectum and lower GI bleed PROCEDURE PERFORMED: Colonoscopy with injection epinephrine and Endo Clip placement. PREOPERATIVE DIAGNOSIS: Acute lower GI bleed. IV sedation per Anesthesia. PROCEDURE: After informed consent was obtained, the patient, was brought into the endoscopy unit. IV sedation was administered by Anesthesia under continuous monitoring. Digital rectal examination was normal. Initially the Olympus CF-160 flexible video colonoscope was then inserted in the rectum, gradually advanced into the cecum without any difficulty. Careful examination was performed as the scope was gradually being withdrawn. Ileocecal valve and the appendiceal orifice were visualized and appeared normal. Prep was fair. There was fresh blood not ed in the base of the cecum with a small clot. Irrigation was performed. Bite appendiceal orifice there was active bleeding identified. This was the site of polypectomy done yesterday. I placed an Endo Clip but the bleeding did not subside. Subsequently I injected 1 in 10,000 epinephrine and total of 6 mL was injected. Following this to monitor clips were placed and complete hemostasis was achieved.rest of the ascending colon, transverse colon, descending colon, sigmoid colon, and rectum appeared normal. Left sided diverticulosis. Retroflexion was performed in the rectum and no lesions were seen. The patient tolerated the procedure well. IMPRESSION: Active bleeding at the polypectomy site in the base of the cecum at the appendiceal orifice status post injection epinephrine followed by Endo Clip placement with good hemostasis Left-sided diverticulosis RECOMMENDATIONS: Findings of this examination were discussed with the patient as well as his family. He'll be on a clear liquid diet today. Monitor CBC daily. We will obtain surgical consultation for surgical standby in case he has recurrent post-polypectomy lower GI bleed.
[2023-02-14] MEDS ORDERED: HYDROmorphone 0.5 MG/0.5 ML SYRINGE IVP ONE ×5 (14:35→17:10)
[2023-02-14] MEDS ORDERED: MEPERIDINE 50 MG/ML SYRINGE IVP ONE ×2 (14:55→15:48)
[2023-02-14] MEDS ORDERED: hydrALAZINE HCL 20 MG/ML 1 ML VIAL IVP ONE (14:55)
[2023-02-14] MEDS ORDERED: IV FLUID CONTINUATION 1,000 ML IV ONE (14:55)
[2023-02-14] MEDS ORDERED: IOPAMIDOL CONTRAST (ORAL USE) VIAL PO PRN ×2 (15:04→15:23)
[2023-02-14 15:40] LABS: HCT 37.6 % (39.0-53.0); HGB 13.1 gm/dL (13.0-17.5); MCH 32.9 pg (25.0-35.0); MCHC 34.8 g/dL (31.0-37.0); MCV 94.3 fL (80.0-100.0); Mean Platelet Volume 8.2; Platelet Count 165 k/uL (150-450); RBC 3.98 m/uL (4.30-5.90); RDW 12.8 % (11.5-15.5); WBC 9.3 k/uL (3.8-10.6)
--- NOTE | 2023-02-14 15:57 | XR ---
EXAMINATION TYPE: XR abdomen 1V DATE OF EXAM: 02/14/2023 COMPARISON: 02/13/2003 HISTORY: Pain TECHNIQUE: One view abdominal series FINDINGS: The osseous structures are intact. The bowel gas pattern is nonspecific. Dilated bowel loops again n oted. There are clips overlying the right colon likely correlate for recent procedure\polypectomy. As sessment for free air limited due to single supine image submitted. Hypertrophic degenerative changes of the spine. Cannot exclude mild thickening of the left wall colon. IMPRESSION: 1. Significant retained air throughout the colon persists. Cannot exclude mild fold thickening of the left colon. Consider follow-up CT scan.
--- NOTE | 2023-02-14 16:32 | CT ---
EXAMINATION: CT ABDOMEN AND PELVIS WITHOUT IV CONTRAST DATE OF EXAMINATION: 02/14/2023. COMPARISON: None available. INDICATION: Abdominal pain status post colonoscopy. PROCEDURE: Axial CT of the abdomen and pelvis was performed with sagittal and coronal reformatted i mages without contrast enhancement. The exam is limited because some types of pathology may not be ad equately demonstrated due to lack of contrast enhancement. CT dose lowering techniques were used, to include: automated exposure control, adjustment for patient size, and/or use of iterative reconstruct ion. FINDINGS: LOWER CHEST : The visualized lung bases are clear. There are no pleural or pericardial effusions. ABDOMEN: Liver and Biliary system: There is diffuse decreased attenuation of the liver which is compatible fa tty liver infiltration. Adrenal glands: Normal. Kidneys and ureters: There is a 2 mm nonobstructing stone in the interpolar region of the left kidne y as well as the inferior pole the left kidney. There is a 1.5 cm cyst in the inferior pole the left kidney. The kidneys and ureters otherwise appear unremarkable. Spleen: Normal. Pancreas: Normal. Gallbladder: Normal. Lymph nodes, Peritoneum and mesentery: There is no mesenteric or retroperitoneal lymphadenopathy. Gastrointestinal tract: There are no dilated loops of bowel or free intraperitoneal air. . There is a clip seen within the colon right lower quadrant near the ileocecal valve. There is some high densi ty material also seen in the dependent portion of the colon which would raise the suspicion of hemorr patti versus mass as the patient did have a history of a polypectomy. Active bleeding is difficult to exclude and a contrast examination would be recommended for further evaluation to exclude active blee ding. There is mild descending colonic and sigmoid colonic diverticulosis without evidence of diverti culitis. No perforation is seen. Aorta/IVC: There is mild vascular calcification throughout the abdominal aorta without evidence of aneurysmal dilation. IVC normal. Abdominal wall: Normal. PELVIS: Fluid: There is no free fluid in the pelvis. Lymph Nodes: There is no pelvic or inguinal lymphadenopathy.. Urinary bladder: Normal. BONES: There are no osseous destructive lesions.. ADDITIONAL SIGNIFICANT FINDINGS: None. IMPRESSION: 1. High density material also seen in the dependent portion of the colon which would raise the suspic ion of hemorrhage versus mass as the patient did have a history of a polypectomy. Active bleeding is difficult to exclude and a contrast examination would be recommended for further evaluation to exclud e active bleeding. . 2. No bowel obstruction. 3. Nonobstructing left renal stones. 4. Diverticulosis without evidence of diverticulitis. 5. Hepatic steatosis.
--- NOTE | 2023-02-14 17:54 | P.GSCN ---
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 Patient underwent rec ent colonoscopy yesterday and was found to have 3 polyps. One of the polyps was in the cecum near the appendiceal orifice. Patient with history of previous appendectomy. Patient had pain following the procedure came back to the hospital complaining of both pain and rectal bleeding. The patient's pain was the bigger issue he felt. A CAT scan was performed showing some density at the cecal base worrisome for hemorrhage. Patient then went this afternoon after bowel prep for colonoscopy. Patient was found to have active bleeding from the base of the cecum. Epinephrine injection along with clip placement took place with no further bleeding noted. A CAT scan was performed after the procedure as his pain was more severe. Flat plate had shown distended colon that is air- filled. No free air on CAT scan after the colonoscopy today. Some density at the cecal base again seen. No evidence of significant inflammatory change or pneumatosis at the cecum noted. His pain is at the right lower quadrant. When I evaluated him in the recovery room he had received analgesics and he states he does feel better. He is still having pain however. He has not been able to pass much air. He is hungry. White blood cell count has been normal. No tachycardia. Review of Systems The patient denies any acute changes in vision or hearing, no dysphagia or odynophagia, no chest pain or shortness of breath, no dysuria or hematuria, no headache, no runny nose, no melena, no unexplained weight loss Past Medical History Past Medical History: Atrial Fibrillation, GERD/Reflux, Hypertension, Musculoskeletal Disorder, Sleep Apnea/CPAP/BIPAP Additional Past Medical History / Comment(s): hx. of herniated disc, sleep apnea - tries to use CPAP, GI scope History of Any Multi-Drug Resistant Organisms: None Reported Past Surgical History: Appendectomy, Orthopedic Surgery Additional Past Surgical History / Comment(s): RIGHT KNEE ARTHROSCOPY, SINUS SURGERY, RT ROTATOR CUFF (03/31/2014). 08/17/20 Cardioversion w/KOLTON, cardiac ablation 2020 - has stayed in sinus rhythm since Past Anesthesia/Blood Transfusion Reactions: No Reported Reaction Past Psychological History: No Psychological Hx Reported Smoking Status: Never smoker Past Alcohol Use History: None Reported Past Drug Use History: None Reported - Past Family History Mother Family Medical History: No Reported History Father Additional Family Medical History / Comment(s): brain aneurysm. paternal grandfather ID age 60 Medications and Allergies Home Medications Medication Instructions Recorded Confirmed Type Omeprazole [PriLOSEC] 20 mg PO DAILY PRN 06/10/14 02/13/23 History Tamsulosin [Flomax] 0.4 mg PO DAILY 02/11/19 02/13/23 History Apixaban [Eliquis] 5 mg PO BID 10/31/21 02/13/23 History Losartan [Cozaar] 50 mg PO DAILY 10/31/21 02/13/23 History Metoprolol Succinate (ER) [Toprol 25 mg PO DAILY 10/31/21 02/13/23 History XL] hydroCHLOROthiazide 12.5 mg PO DAILY 10/31/21 02/13/23 History Cholecalciferol [Vitamin D3 (25 50 mcg PO DAILY 02/13/23 02/13/23 History Mcg = 1000 Iu)] Sertraline [Zoloft] 50 mg PO DAILY 02/13/23 02/13/23 History Allergies Allergy/AdvReac Type Severity Reaction Status Date / Time No Known Allergies Allergy Verified 02/13/23 22:02 Surgical - Exam Vital Signs Temp Pulse Resp BP Pulse Ox 97.9 F 79 18 169/74 96 02/13/23 17:57 02/13/23 17:57 02/13/23 17:57 02/13/23 17:57 02/13/23 17:57 Physical exam: General: Well-developed, well-nourished HEENT: Normocephalic, sclerae nonicteric Abdomen: Mild distention, mild to moderate right lower quadrant tenderness Extremities: No edema Neuro: Alert and oriented Results - Labs 02/14/23 15:26 02/14/23 05:57 Abnormal Lab Results - Last 24 Hours (Table) 02/14/23 02/14/23 02/14/23 Range/Units 05:57 05:57 15:26 RBC 3.93 L 3.98 L (4.30-5.90) m/uL Hgb 12.5 L (13.0-17.5) gm/dL Hct 37.6 L 37.6 L (39.0-53.0) % Lymphocytes # 0.8 L (1.0-4.8) k/uL Sodium 136 L (137-145) mmol/L Glucose 109 H (74-99) mg/dL Diabetes panel 02/13/23 02/14/23 Range/Units 18:24 05:57 Sodium 140 136 L (137-145) mmol/L Potassium 3.7 3.8 (3.5-5.1) mmol/L Chloride 106 107 (98-107) mmol/L Carbon Dioxide 22 23 (22-30) mmol/L BUN 15 13 (9-20) mg/dL Creatinine 0.72 0.70 (0.66-1.25) mg/dL Glucose 99 109 H (74-99) mg/dL Calcium 9.4 8.5 (8.4-10.2) mg/dL AST 40 30 (17-59) U/L ALT 41 33 (4-49) U/L Alkaline Phosphatase 75 81 (38-126) U/L Total Protein 8.1 6.7 (6.3-8.2) g/dL Albumin 4.4 3.5 (3.5-5.0) g/dL Calcium panel 02/13/23 02/14/23 Range/Units 18:24 05:57 Calcium 9.4 8.5 (8.4-10.2) mg/dL Albumin 4.4 3.5 (3.5-5.0) g/dL Pituitary panel 02/13/23 02/14/23 Range/Units 18:24 05:57 Sodium 140 136 L (137-145) mmol/L Potassium 3.7 3.8 (3.5-5.1) mmol/L Chloride 106 107 (98-107) mmol/L Carbon Dioxide 22 23 (22-30) mmol/L BUN 15 13 (9-20) mg/dL Creatinine 0.72 0.70 (0.66-1.25) mg/dL Glucose 99 109 H (74-99) mg/dL Calcium 9.4 8.5 (8.4-10.2) mg/dL Adrenal panel 02/13/23 02/14/23 Range/Units 18:24 05:57 Sodium 140 136 L (137-145) mmol/L Potassium 3.7 3.8 (3.5-5.1) mmol/L Chloride 106 107 (98-107) mmol/L Carbon Dioxide 22 23 (22-30) mmol/L BUN 15 13 (9-20) mg/dL Creatinine 0.72 0.70 (0.66-1.25) mg/dL Glucose 99 109 H (74-99) mg/dL Calcium 9.4 8.5 (8.4-10.2) mg/dL Total Bilirubin 0.7 0.6 (0.2-1.3) mg/dL AST 40 30 (17-59) U/L ALT 41 33 (4-49) U/L Alkaline Phosphatase 75 81 (38-126) U/L Total Protein 8.1 6.7 (6.3-8.2) g/dL Albumin 4.4 3.5 (3.5-5.0) g/dL Assessment and Plan (1) Abdominal pain Narrative/Plan: 57-year-old male with right lower quadrant abdominal pain after polypectomy yesterday. I suspect patient's pain is related to inflammatory change at the cecum from recent polypectomy and bleeding. Pain is aggravated now because of colonic air distention. No indication currently for surgical intervention. Empirically would start antibiotics for possible microperforation or developing infection. Keep nothing by mouth for now. We'll follow closely. Current Visit: Yes Status: Acute Code(s): R10.9 - UNSPECIFIED ABDOMINAL PAIN SNOMED Code(s): 05800165
[2023-02-14] MEDS ORDERED: HYDROmorphone 1 MG/ML 1 ML SYRINGE IVP PRN (17:55)
[2023-02-14] MEDS ORDERED: ACETAMINOPHEN TAB 325 MG TAB PO PRN (17:55)
[2023-02-14] MEDS ORDERED: PANTOPRAZOLE 40 MG TABLET PO PRN (17:55)
[2023-02-14] MEDS ORDERED: traMADol 50 MG TAB PO PRN (17:55)
[2023-02-14] MEDS ORDERED: metroNIDAZOLE-NS PMX 500 MG in SALINE 1 100ML.BAG IVPB SCH (18:00)
[2023-02-14 20:21] LABS: HGB 12.5 gm/dL (13.0-17.5); MCHC 33.9 g/dL (31.0-37.0); MCV 94.5 fL (80.0-100.0); Mean Platelet Volume 9.2; Platelet Count 136 k/uL (150-450); RBC 3.92 m/uL (4.30-5.90); WBC 8.7 k/uL (3.8-10.6)
[2023-02-15] MEDS: ACETAMINOPHEN IV (For NPO) 1,000 MG in EMPTY BAG 1 BAG IVPB SCH (00:07)
[2023-02-15] MEDS: PIPERACILLIN-TAZOBACTAM 3.375 GM in SODIUM CHLORIDE 0.9% 100 ML IVPB SCH ×2 (00:13→09:19)
[2023-02-15] MEDS: metroNIDAZOLE-NS PMX 500 MG in SALINE 1 100ML.BAG IVPB SCH ×2 (04:34→12:48)
[2023-02-15 05:09] LABS: HCT 40.4 % (39.0-53.0); HGB 13.6 gm/dL (13.0-17.5); MCH 31.9 pg (25.0-35.0); MCHC 33.7 g/dL (31.0-37.0); MCV 94.6 fL (80.0-100.0); Mean Platelet Volume 8.2; Platelet Count 159 k/uL (150-450); RBC 4.27 m/uL (4.30-5.90)
[2023-02-15] MEDS: SODIUM CHLORIDE 0.9% 1,000 ML IV SCH (06:18)
[2023-02-15 08:23] VITALS: BP 140/74; PULSE 67; RESP 18; TEMP 97.8
[2023-02-15] MEDS ORDERED: SERTRALINE 50 MG TAB PO SCH (09:00)
[2023-02-15] MEDS ORDERED: TAMSULOSIN 0.4 MG CAP.ER.24H PO SCH (09:00)
[2023-02-15] MEDS ORDERED: LOSARTAN 50 MG TAB PO SCH (09:00)
[2023-02-15] MEDS ORDERED: hydroCHLOROthiazide 12.5 MG CAP PO SCH (09:00)
[2023-02-15] MEDS ORDERED: METOPROLOL SUCCINATE (ER) 25 MG TAB.ER.24H PO SCH (09:00)
[2023-02-15 11:01] LABS: HCT 37.9 % (39.6-50.0); HGB 12.7 g/dL (13.0-17.0); MCH 31.8 pg (27.0-32.0); MCHC 33.5 g/dL (32.0-37.0); Mean Platelet Volume 11.7 FL (9.5-12.2); NRBC Per 100 WBC 0 X 10*3/uL (0.00-0.01); Platelet Count 165 X 10*3/uL (140-440); RBC 3.99 X 10*6/uL (4.40-5.60); RDW 12.6 % (11.5-14.5); WBC 7.81 X 10*3/uL (4.50-10.00)
--- NOTE | 2023-02-15 11:22 | P.PN ---
Subjective Progress Note Date: 02/15/23 CHIEF COMPLAINT: Right lower quadrant abdominal pain after polypectomy HISTORY OF PRESENT ILLNESS: Patient reports that his pain has improved greatly. He rates his pain about a 3 out of 10 compared to 10 out of 10. He reports no further blood in his stools. He had one episode of vomiting yesterday. His hemoglobin has gone up from 12.5-13.6 white count is 10. Vitals are stable. PHYSICAL EXAM: VITAL SIGNS: Reviewed. GENERAL: Well-developed in no acute distress. ABDOMEN: Soft. Mildly distended. Tenderness right lower quadrant with palpation NEUROLOGIC: Alert and oriented. Cranial nerves II through XII grossly intact. ASSESSMENT: 1. Right lower quadrant abdominal pain likely secondary to inflammatory change at the cecum from recent polypectomy PLAN: -Patient can be discharged from surgical standpoint -Continue antibiotics as prescribed per GI service -Start clear liquid diet and then advance as tolerated -No surgical intervention planned Physician Package Liner note has been reviewed by physician. Signing provider agrees with the documented findings, assessment, and plan of care. I have personally seen and examined the patient, reviewed the INCOME TAX INVESTIGATOR /PAs history, exam and MDM and agree with the assessment and plan as written. Based on total visit time, I have performed more than 50% of the visit. As above: Patient feeling much better today. Still has mild right lower quadrant tenderness. Agree with plans for discharge if tolerating diet. Agree with plans for outpatient antibiotics. Objective - Vital Signs Vital signs: Vital Signs Temp 97.8 F 02/15/23 07:40 Pulse 67 02/15/23 07:40 Resp 18 02/15/23 07:40 BP 140/74 02/15/23 07:40 Pulse Ox 97 02/15/23 07:40 FiO2 Intake & Output 02/14/23 02/15/23 02/15/23 18:59 06:59 18:59 Intake Total 700 740 Balance 700 740 Weight 104.326 kg Intake: IV 700 Oral 740 Other: Voiding Method Toilet Toilet # Voids 1 - Labs CBC & Chem 7: 02/15/23 06:51 02/14/23 05:57 Labs: Abnormal Lab Results - Last 24 Hours (Table) 02/14/23 02/14/23 02/15/23 Range/Units 15:26 20:08 04:23 RBC 3.98 L 3.92 L 4.27 L (4.30-5.90) m/uL Hgb 12.5 L (13.0-17.5) gm/dL Hct 37.6 L 37.0 L (39.0-53.0) % Plt Count 136 L (150-450) k/uL 02/15/23 Range/Units 06:51 RBC 3.99 L (4.30-5.90) m/uL Hgb 12.7 L (13.0-17.5) gm/dL Hct 37.9 L (39.0-53.0) % Plt Count (150-450) k/uL
--- NOTE | 2023-02-15 11:51 | P.PN ---
Subjective Progress Note Date: 02/15/23 Principal diagnosis: Post polypectomy bleed This is a pleasant 57-year-old male who was scheduled yesterday for elective colonoscopy as part of evaluation for prior history of colon polyps. He also has a history of atrial fibrillation and was taking Eliquis last taken on 2022. He underwent colonoscopy with tomorrow and was found to have 2 cecal polyps measuring 3 mm and 8 mm status post cold snare polypectomy, one 1 cm hepatic flexure polyp status post snare polyp to ca, and scattered sigmoid diverticulosis. He was sent to recovery without any complications. She was then discharged home. Once the patient got home later in the afternoon he started developing active bleeding and lower abdominal cramping. He states is mostly on the right side. He had several episodes of rectal bleeding last one about 2 hours ago. Initial hemoglobin on admission was 14.7 with a drop today to 12.5. He states he did have some nausea yesterday but no vomiting. He jaja nues to have lower abdominal cramping mostly on the right and reports the bleeding as bright red. 02/15/2023 Patient seen and examined today as a follow-up. Yesterday he underwent repeat colonoscopy with findings of active bleeding at the polypectomy site in the base of the cecum at the appendiceal orifice status post injection of epinephrine followed by Endo Clip placement with good hemostasis. Left-sided diverticulosis. Patient continued to have some abdominal pain and a repeat CT was ordered and general surgery was consulted. No free air reported after colonoscopy. Patient reports his pain is significantly improved. He has no abdominal pain unless palpated were a little discomfort with movement. He denies any rectal bleeding. He had some nausea and vomiting yesterday evening b ut none today. He is tolerating a clear liquid diet. His hemoglobin is stable and actually improved from yesterday and is 13.6 up from 12.5. Objective - Vital Signs Vital signs: Vital Signs Temp 97.4 F L 02/15/23 02:00 Pulse 73 02/15/23 02:00 Resp 16 02/15/23 02:00 BP 129/73 02/15/23 02:00 Pulse Ox 98 02/15/23 02:00 FiO2 Intake & Output 02/14/23 02/14/23 02/15/23 06:59 18:59 06:59 Intake Total 700 740 Balance 700 740 Weight 104.326 kg Intake: IV 700 Oral 740 Other: Voiding Method Toilet # Voids 1 - Exam General appearance: The patient is alert, oriented, appears in no acute distress. HET: Head is normocephalic and atraumatic. Conjunctiva pink. Sclera anicteric. Neck: Supple without lymphadenopathy. Abdomen: Soft, tender right lower quadrant, nondistended. No guarding or rigidity. Extremities: Normal skin color and turgor. No pedal edema Skin: No rashes, no jaundice Neurological: No focal deficits. Alert and oriented. - Labs CBC & Chem 7: 02/15/23 06:51 02/14/23 05:57 Labs: Abnormal Lab Results - Last 24 Hours (Table) 02/14/23 02/14/23 02/14/23 Range/Units 05:57 05:57 15:26 RBC 3.93 L 3.98 L (4.30-5.90) m/uL Hgb 12.5 L (13.0-17.5) gm/dL Hct 37.6 L 37.6 L (39.0-53.0) % Plt Count (150-450) k/uL Lymphocytes # 0.8 L (1.0-4.8) k/uL Sodium 136 L (137-145) mmol/L Glucose 109 H (74-99) mg/dL 02/14/23 02/15/23 Range/Units 20:08 04:23 RBC 3.92 L 4.27 L (4.30-5.90) m/uL Hgb 12.5 L (13.0-17.5) gm/dL Hct 37.0 L (39.0-53.0) % Plt Count 136 L (150-450) k/uL Lymphocytes # (1.0-4.8) k/uL Sodium (137-145) mmol/L Glucose (74-99) mg/dL Assessment and Plan (1) Post-polypectomy bleeding Narrative/Plan: 57-year-old who had an elective colonoscopy yesterday as part of his screening for previous history of colon polyps who is also on Eliquis for atrial fibrillation underwent polypectomy yesterday and presented back to the emergency department with bright red rectal bleeding. He continues to have rectal bleeding with a 2 g drop in his hemoglobin. Likely post polypectomy bleed however cannot rule out possible diverticular bleed as well as patient did have sigmoid diverticulosis. Will plan for repeat colonoscopy. 02/15/2023 Patient status post repeat colonoscopy with findings of bleeding polypectomy status post epinephrine and clip placement with good hemostasis. Gen. surgery was consulted and feel there is no indication for any surgical intervention. Abdominal pain has improved and patient has not had any further rectal bleeding. Current Visit: Yes Status: Acute Code(s): GBO2514 - SNOMED Code(s): 076394689 Plan: 1. Clear liquid diet for the next 24 hours, advance gradually 2. IV acetaminophen for pain 3. Patient is status post repeat colonoscopy 4. Gen. surgery consult, appreciate their recommendations 5. May resume anticoagulation tomorrow Thank you for this consultation, patient is cleared from gastroenterology for discharge once cleared by general surgery. Dr. La Haro I agree with the dictator's note, documented as a scribe by Juliana Alexandre.
--- NOTE | 2023-02-15 12:49 | P.DS ---
Providers Date of admission: 02/13/23 21:40 Expected date of discharge: 02/15/23 Attending physician: Wilman Gottlieb MD Consults: 02/13/23 21:39 Consult Physician Urgent Consulting Provider: Katie Haro Consult Reason/Comments: post colonoscopy rectal bleeding Do you want consulting provider notified?: Already Contacted 02/14/23 14:40 Consult Physician Urgent Consulting Provider: Sukh Mitchell Consult Reason/Comments: post polypectomy bleed Do you want consulting provider notified?: Yes Primary care physician: [facility] Course: Discharge Diagnosis: Acute lower GI bleeding at the site of polypectomy Abdominal pain Afib HTN BPH GERD Hospital Course: 57-year-old male with a PMH of A. fib on Eliquis, hypertension, BPH, and GERD who presents to the emergency room with complaints of GI bleeding and abdominal pain. The patient underwent colonoscopy earlier with Dr. Haro where [address] abdomen and pelvis in the emergency room was unremarkable. Laboratory evaluation revealed a hemoglobin of 14.7 with fecal occult blood positive. GI consulted. Colonoscopy repeated, showed active bleeding at the polypectomy site, Endo Clip placed. Surgery also consulted due to abdominal pain. Patient being discharged on oral antibiotics. Is able to tolerate oral intake. Patient seen and examined at bedside. Vital signs reviewed and stable. General: nontoxic, no distress, appears at stated age Derm: warm, dry Head: atraumatic, normocephalic, symmetric Eyes: EOMI, no lid lag, anicteric sclera Mouth: no lip lesion, mucus membranes moist Cardiovascular: S1S2 reg, no murmur Lungs: CTA bilateral, no rhonchi, no rales , no accessory muscle use Abdominal: soft, nontender to palpation, no guarding, no appreciable organo megaly Ext: no gross muscle atrophy, no edema, no contractures Neuro: CN II-XI grossly intact, no focal neuro deficits Psych: Alert, oriented, appropriate affect A total of 33 minutes of time were spent preparing this complex discharge summary. Patient was discharged on 02/15/23 1216. Patient Condition at Discharge: Stable Plan - Discharge Summary New Discharge Prescriptions: New Amoxic-Pot Clav 500-125 mg [Augmentin 500-125 mg] 1 tab PO Q12HR 5 Days #10 tab Continue Omeprazole [PriLOSEC] 20 mg PO DAILY PRN PRN Reason: Reflux Tamsulosin [Flomax] 0.4 mg PO DAILY Apixaban [Eliquis] 5 mg PO BID Cholecalciferol [Vitamin D3 (25 Mcg = 1000 Iu)] 50 mcg PO DAILY Metoprolol Succinate (ER) [Toprol XL] 25 mg PO DAILY hydroCHLOROthiazide 12.5 mg PO DAILY Losartan [Cozaar] 50 mg PO DAILY Sertraline [Zoloft] 50 mg PO DAILY Discharge Medication List Omeprazole [PriLOSEC] 20 mg PO DAILY PRN 06/10/14 [History] Tamsulosin [Flomax] 0.4 mg PO DAILY 02/11/19 [History] Apixaban [Eliquis] 5 mg PO BID 10/31/21 [History] Losartan [Cozaar] 50 mg PO DAILY 10/31/21 [History] Metoprolol Succinate (ER) [Toprol XL] 25 mg PO DAILY 10/31/21 [History] hydroCHLOROthiazide 12.5 mg PO DAILY 10/31/21 [History] Cholecalciferol [Vitamin D3 (25 Mcg = 1000 Iu)] 50 mcg PO DAILY 02/13/23 [History] Sertraline [Zoloft] 50 mg PO DAILY 02/13/23 [History] Amoxic-Pot Clav 500-125 mg [Augmentin 500-125 mg] 1 tab PO Q12HR 5 Days #10 tab 02/15/23 [Rx] Follow up Appointment(s)/Referral(s): Manjeet Bray MD [Primary Care Provider] - 1-2 days (please call the office to schedule a follow up appointment.) Katie Haro MD [STAFF PHYSICIAN] - 02/20/23 3:45 pm Patient Instructions/Handouts: Gastrointestinal Bleeding (DC) Activity/Diet/Wound Care/Special Instructions: Stay on clear liquid diet for the next 24 hours, then advance gradually May resume anticoagulation on 02/16/2023 Discharge Disposition: HOME SELF-CARE
== END 2023-02-15 13:36 | disposition home or self-care (01) ==
LOC: EC 17:09 → 6NMEDSUR 21:40 → 5NMEDONC 02-14 15:00
PROVIDERS: ADMIT Internal Medicine; ATTEND Internal Medicine
DX: K91.840 Postprocedural hemorrhage of a digestive system organ or structure following a digestive system procedure (principal); I48.91 Unspecified atrial fibrillation; K21.9 Gastro-esophageal reflux disease without esophagitis; I10 Essential (primary) hypertension; G47.30 Sleep apnea, unspecified; Y83.8 Other surgical procedures as the cause of abnormal reaction of the patient, or of later complication, without mention of misadventure at the time of the procedure; N40.0 Benign prostatic hyperplasia without lower urinary tract symptoms; Z86.010 Personal history of colon polyps; Z87.19 Personal history of other diseases of the digestive system; K57.20 Diverticulitis of large intestine with perforation and abscess without bleeding; Z79.01 Long term (current) use of anticoagulants; Z79.899 Other long term (current) drug therapy; Z82.49 Family history of ischemic heart disease and other diseases of the circulatory system
CPT/HCPCS: 96361; 96374; 99285; 36415; 80053 ×2; 83690; 85025 ×2; 85027 ×2; 85610; 85730; 82272; 74018; 74176; 74177; 45382; G0378 ×4; J2543; J2270 ×2; J0360; J2175; J2405 ×2; J0696; J1170 ×2; J0131 ×2; J2704; Q9967; J1836 ×2